=== PATIENT | female | born 1935 | race Caucasian/White ===

== ENCOUNTER 2017-06-13 17:10 | Observation (INO) | payer BC ==
--- NOTE | 2017-06-13 17:28 | PDOC ---
Rapid Medical Evaluation Chief Complaint: Edema Time Seen by Provider: 06/13/17 17:22 Medical Evaluation: Allergies Allergy/AdvReac Type Severity Reaction Status Date / Time No Known Allergies Allergy Verified 06/13/17 17:22 12 17:22 I have performed a brief in-person evaluation of this patient. The patient presents with a chief complaint of: Pain and worsening swelling to b /l LE x 2 weeks. Found to have cold, painful cyanotic b/l LE w/ no pulses in PMD 's (Dr Sharmaine Oseguera at [facility]) office today. Sent to ED to r/o acute arterial occlusion b/l. H/o HCV, HTN, PVD, R ankle ulcer, depression Pertinent physical exam findings: significant edema b/l, R LE cooler and Left side I have ordered the following: cbc/chem/t&S/coags The patient will proceed to the ED for further evaluation.
--- NOTE | 2017-06-13 17:53 | PDOC ---
History of Present Illness - General History Source: Patient Exam Limitations: No Limitations - History of Present Illness Initial Comments: 06/13/17 18:27 The patient is a 82 year old female with a significant PMH of hypertension and neuropathy who presents to the emergency department with swollen legs and bluish discoloration to her right foot starting today. The patient reports she went to see her PMD today who sent to the ER to r/o acute arterial occlusion. The patient notes she has an ulcer on the left foot and a lesion on the right ankle. As per the patient's daughter, the right foot is no longer blue. The patient denies chest pain, shortness of breath, headache and dizziness. Denies fever, chills, nausea, vomit, diarrhea and constipation. Allergies: NKA Past surgical history: None reported Social history: No reported drug, alcohol, or cigarette use. PCP: Dr. Sharmaine Oseguera <Jeri Meyers - Last Filed: 06/13/17 18:53> <Pj Holly - Last Filed: 06/14/17 00:15> <Carmen Yuen - Last Filed: 06/19/17 23:18> - General Chief Complaint: Edema Stated Complaint: PCP SENT/EVALUATION Time Seen by Provider: 06/13/17 17:22 Past History <Jeri Meyers - Last Filed: 06/13/17 18:53> <Pj Holly - Last Filed: 06/14/17 00:15> - Past Medical History Anemia: No Asthma: No Cancer: No Cardiac Disorders: No CVA: No COPD: No CHF: No DVT: No Dementia: No Diabetes: No GI Disorders: Yes (DIVERTICULITIS - RUPTURE) Disorders: No HTN: Yes Hypercholesterolemia: No Liver Disease: Yes (hep c) Seizures: No Thyroid Disease: Yes - Surgical History Abdominal Surgery: Yes Appendectomy: Yes Cardiac Surgery: No Cholecystectomy: Yes Lung Surgery: No Neurologic Surgery: No Orthopedic Surgery: No - Suicide/Smoking/Psychosocial Hx Smoking History: Former smoker Have you smoked in the past 12 months: No Information on smoking cessation initiated: No Hx Alcohol Use: No Drug/Substance Use Hx: No Substance Use Type: None <Carmen Yuen - Last Filed: 06/19/17 23:18> - Past Medical History Allergies/Adverse Reactions: Allergies Allergy/AdvReac Type Severity Reaction Status Date / Time No Known Allergies Allergy Verified 06/13/17 17:22 Home Medications: Ambulatory Orders Metolazone 20 mg PO DAILY 03/08/13 Metoprolol Succinate [Toprol XL -] 25 mg PO DAILY 03/08/13 Sertraline HCl 100 mg PO DAILY 03/08/13 Aspirin [ASA -] 81 mg PO DAILY 05/01/15 Gabapentin 300 mg PO BID 05/01/15 Multivit-Min/FA/Lycopen/Lutein [Centrum Silver Tablet] 1 tab PO DAILY 05/01/15 Lisinopril/Hydrochlorothiazide [Lisinopril-Hctz 10-12.5 mg Tab] 1 each PO DAILY 06/14/17 Oxycodone HCl/Acetaminophen [Percocet 10-325 mg Tablet] 1 each PO QID PRN Bacitracin - [Bacitracin Topical Ointment -] 1 applic TP BID #1 applic 06/15/17 Cephalexin Monohydrate [Keflex -] 500 mg PO BID #16 capsule 06/15/17 Polymyxin B Sulf/Trimethoprim [Polymyxin B-Tmp Eye Drops] 10 ml OS Q4H #1 drops 06/15/17 Review of Systems - Review of Systems Able to Perform ROS?: Yes Comments:: 06/13/17 18:28 GENERAL/CONSTITUTIONAL: No fever or chills. No weakness. HEAD, EYES, EARS, NOSE AND THROAT: No change in vision. No ear pain or discharge. No sore throat. CARDIOVASCULAR: No chest pain or shortness of breath. RESPIRATORY: No cough, wheezing, or hemoptysis. GASTROINTESTINAL: No nausea, vomiting, diarrhea or constipation. GENITOURINARY: No dysuria, frequency, or change in urination. MUSCULOSKELETAL: (+) Leg swelling. (+) Blue discoloration to the right foot. No joint or muscle pain. No neck or back pain. SKIN: No rash NEUROLOGIC: No headache, vertigo, loss of consciousness, or change in strength/ sensation. ENDOCRINE: No increased thirst. No abnormal weight change. HEMATOLOGIC/LYMPHATIC: No anemia, easy bleeding, or history of blood clots. ALLERGIC/IMMUNOLOGIC: No hives or skin allergy. <Jeri Meyers - Last Filed: 06/13/17 18:53> *Physical Exam - Vital Signs Last Vital Signs Temp Pulse Resp BP Pulse Ox 98.0 F 18 L 60 H 146/77 100 06/13/17 17:22 06/13/17 17:22 06/13/17 17:22 06/13/17 17:22 06/13/17 17:22 <Jeri Meyers - Last Filed: 06/13/17 18:53> - Vital Signs Last Vital Signs Temp Pulse Resp BP Pulse Ox 98.0 F 18 L 60 H 146/77 100 06/13/17 17:22 06/13/17 17:22 06/13/17 17:22 06/13/17 17:22 06/13/17 17:22 <Pj Holly - Last Filed: 06/14/17 00:15> - Vital Signs Last Vital Signs Temp Pulse Resp BP Pulse Ox 98.0 F 18 L 60 H 146/77 100 06/13/17 17:22 06/13/17 17:22 06/13/17 17:22 06/13/17 17:22 06/13/17 17:22 - Physical Exam Comments: GENERAL: Awake, alert, and fully oriented, in no acute distress HEAD: No signs of trauma EYES: PERRLA, EOMI, sclera anicteric, conjunctiva clear ENT: Auricles normal inspection, hearing grossly normal, nares patent, oropharynx clear without exudates. Moist mucosa NECK: Normal ROM, supple, no lymphadenopathy, JVD, or masses LUNGS: Breath sounds equal, clear to auscultation bilaterally. No wheezes, and no crackles HEART: Regular rate and rhythm, normal S1 and S2, no murmurs, rubs or gallops ABDOMEN: Soft, nontender, normoactive bowel sounds. No guarding, no rebound. No masses EXTREMITIES: Normal range of motion, 3+ pitting edema to BLE. Feet are cool to palpation, pulses difficult to palpate due to significant edema. +Tight dressing to R ankle, small laceration beneath. L heel with chronic ulcer, no active drainage. NEUROLOGICAL: Cranial nerves II through XII grossly intact. Normal speech. Motor intact. Dec sensation to feet b/l. SKIN: Warm, Dry, normal turgor, no rashes. <Carmen Yuen - Last Filed: 06/19/17 23:18> ED Treatment Course - LABORATORY CBC & Chemistry Diagram: 06/13/17 18:20 06/13/17 18:20 <Jeri Meyers - Last Filed: 06/13/17 18:53> - LABORATORY CBC & Chemistry Diagram: 06/13/17 18:20 06/13/17 18:20 - ADDITIONAL ORDERS Additional order review: Laboratory Results 06/13/17 06/13/17 06/13/17 18:20 18:20 18:20 PT with INR 12.80 H INR 1.13 Sodium 136 Potassium 4.5 Chloride 106 Carbon Dioxide 18 L Anion Gap 12 BUN 19 H Creatinine 1.3 H Creat Clearance w eGFR 39.21 Random Glucose 108 H Calcium 8.8 Total Bilirubin 0.6 AST 54 H ALT 42 Alkaline Phosphatase 89 Total Protein 9.0 H Albumin 3.8 Blood Type A POSITIVE Antibody Screen Negative 06/13/17 18:20 RBC 4.65 MCV 89.0 MCHC 32.4 RDW 14.1 MPV 8.0 Neutrophils % 72.9 Lymphocytes % 15.2 Monocytes % 8.8 Eosinophils % 2.7 Basophils % 0.4 - RADIOLOGY Radiology Studies Ordered: Category Date Time Status ABDOMEN CTA AOR & BLE RUNOFF [CT] Stat CT Scan 06/13/17 21:00 Taken CHEST X-RAY PORTABLE* [RAD] Stat Radiology 06/14/17 00:04 Ordered <Pj Holly - Last Filed: 06/14/17 00:15> - LABORATORY CBC & Chemistry Diagram: 06/15/17 06:00 06/15/17 06:00 <Carmen Yuen - Last Filed: 06/19/17 23:18> Medical Decision Making - Medical Decision Making 06/13/17 19:[address] Holly. F/u dopplers and reassess. The temporary color change in the foot may have been due to the tight dressing, but there is possibility of arterial occlusion based on patient's past history. <Cramen Yuen - Last Filed: 06/19/17 23:18> *DC/Admit/Observation/Transfer - Attestations Scribe Attestion: 06/13/17 18:34 Documentation prepared by Jeri Meyers, acting as medical customer service representative for Carmen Yuen MD. <Jeri Meyers - Last Filed: 06/13/17 18:53> - Discharge Dispostion Admit: Yes <Pj Holly - Last Filed: 06/14/17 00:15> <Carmen Yuen - Last Filed: 06/19/17 23:18> Diagnosis at time of Disposition: Swelling of both lower extremities, Arterial vascular disease - Discharge Dispostion Disposition: HOME Condition at time of disposition: Stable
[2017-06-13 18:43] LABS: BASO % 0.4 % (0-2.0); EOS % 2.7 % (0-4.5); HEMATOCRIT 41.4 % (32.4-45.2); HEMOGLOBIN 13.4 GM/dL (10.7-15.3); LYMPH % 15.2 % (8-40); MCH 28.8 pg (25.7-33.7); MCHC 32.4 g/dl (32.0-36.0); MONO % 8.8 % (3.8-10.2); NEUT % 72.9 % (42.8-82.8); PLATELET COUNT 197 K/MM3 (134-434); RBC 4.65 M/mm3 (3.60-5.2); RDW 14.1 % (11.6-15.6); WHITE BLOOD COUNT 9.2 K/mm3 (4.0-10.0)
[2017-06-13 18:57] LABS: INR 1.13 (0.82-1.09); PROTHROMBIN TIME (PATIENT) 12.8 SEC (9.98-11.88)
[2017-06-13 19:49] LABS: ALBUMIN 3.8 g/dl (3.4-5.0); ALK PHOS 89 U/L (45-117); ANION GAP 12 (8-16); BILIRUBIN,TOTAL 0.6 mg/dL (0.2-1.0); BLOOD UREA NITROGEN 19 mg/dL (7-18); CALCIUM 8.8 mg/dL (8.5-10.1); CHLORIDE 106 mmol/L (98-107); CO2 18 mmol/L (21-32); CREATININE 1.3 mg/dL (0.55-1.02); GLUCOSE,RANDOM 108 mg/dL (74-106); POTASSIUM 4.5 mmol/L (3.5-5.1); SGOT/AST 54 U/L (15-37); SGPT/ALT 42 U/L (12-78); SODIUM 136 mmol/L (136-145)
--- NOTE | 2017-06-14 00:06 | PDOC ---
*Physical Exam - Vital Signs Last Vital Signs Temp Pulse Resp BP Pulse Ox 98.0 F 18 L 60 H 146/77 100 06/13/17 17:22 06/13/17 17:22 06/13/17 17:22 06/13/17 17:22 06/13/17 17:22 ED Treatment Course - LABORATORY CBC & Chemistry Diagram: 06/13/17 18:20 06/13/17 18:20 - ADDITIONAL ORDERS Additional order review: Laboratory Results 06/13/17 06/13/17 06/13/17 18:20 18:20 18:20 PT with INR 12.80 H INR 1.13 Sodium 136 Potassium 4.5 Chloride 106 Carbon Dioxide 18 L Anion Gap 12 BUN 19 H Creatinine 1.3 H Creat Clearance w eGFR 39.21 Random Glucose 108 H Calcium 8.8 Total Bilirubin 0.6 AST 54 H ALT 42 Alkaline Phosphatase 89 Total Protein 9.0 H Albumin 3.8 Blood Type A POSITIVE Antibody Screen Negative 06/13/17 18:20 RBC 4.65 MCV 89.0 MCHC 32.4 RDW 14.1 MPV 8.0 Neutrophils % 72.9 Lymphocytes % 15.2 Monocytes % 8.8 Eosinophils % 2.7 Basophils % 0.4 - RADIOLOGY Radiology Studies Ordered: Category Date Time Status ABDOMEN CTA AOR & BLE RUNOFF [CT] Stat CT Scan 06/13/17 21:00 Taken CHEST X-RAY PORTABLE* [RAD] Stat Radiology 06/14/17 00:04 Ordered Medical Decision Making - Medical Decision Making 06/14/17 00:06 Pt CTA of Aorta and bilateral runoff show significant arterial vascular disease. MRA suggested. Pt has difficulty ambulating. Will admit to [facility] Obs *DC/Admit/Observation/Transfer Diagnosis at time of Disposition: Swelling of both lower extremities, Arterial vascular disease - Discharge Dispostion Condition at time of disposition: Stable - Referrals Referrals: Sharmaine Oseguera [Primary Care Provider] - - Patient Instructions - Post Discharge Activity
--- NOTE | 2017-06-14 00:26 | HP ---
CHIEF COMPLAINT: Lower extremity Edema PCP: Dr. Alfred HISTORY OF PRESENT ILLNESS: 82 year old female with past medical history of HTN, neuropathy, and Hep C s/p vero tx presenting with lower extremity edema and redness x 2 weeks. Patient went to see her PCP today who sent her to the ED. Patient denies seeing any discoloration of her feet. Patient also has noticed redness of her left thigh x 1 day. Patient is unsure if anything happened to that area and denies any trauma to that area. Patient denies fever, chills, chest pain, shortness of breath, leg pain, parasthesias, or cold feet. ER course was notable for: (1) Cr 1.3 (2) CTA aorta w/ runoff- Significant arterial vascular disease involving anterior and posterior tibial as well as peroneal arteries bilaterally (3) Recent Travel: denies PAST MEDICAL HISTORY: as per hpi PAST SURGICAL HISTORY: Diverticulitis, Hep C, Thyroid dz Social History: Smoking: denies Alcohol: denies Drugs: denies Family History: Allergies No Known Allergies Allergy (Verified 06/13/17 17:22) HOME MEDICATIONS: Home Medications Medication Instructions Recorded Metolazone 20 mg PO DAILY 03/08/13 Metoprolol Succinate [Toprol XL] 25 mg PO DAILY 03/08/13 Sertraline HCl 100 mg PO DAILY 03/08/13 Aspirin [ASA -] 81 mg PO DAILY 05/01/15 Gabapentin 300 mg PO BID 05/01/15 Multivit-Min/FA/Lycopen/Lutein 1 tab PO DAILY 05/01/15 [Centrum Silver Tablet] Lisinopril/Hydrochlorothiazide 1 each PO DAILY 06/14/17 [Lisinopril-Hctz 10-12.5 mg Tab] REVIEW OF SYSTEMS CONSTITUTIONAL: Absent: fever, chills, diaphoresis, generalized weakness, malaise, loss of appetite, weight change HEENT: Absent: rhinorrhea, nasal congestion, throat pain, throat swelling, difficulty swallowing, mouth swelling, ear pain, eye pain, visual changes CARDIOVASCULAR: Absent: chest pain, syncope, palpitations, irregular heart rate, lightheadedness , peripheral edema RESPIRATORY: Absent: cough, shortness of breath, dyspnea with exertion, orthopnea, wheezing, stridor, hemoptysis GASTROINTESTINAL: Absent: abdominal pain, abdominal distension, nausea, vomiting, diarrhea, constipation, melena, hematochezia GENITOURINARY: Absent: dysuria, frequency, urgency, hesitancy, hematuria, flank pain, genital pain MUSCULOSKELETAL: Absent: myalgia, arthralgia, joint swelling, back pain, neck pain SKIN: Absent: rash, itching, pallor HEMATOLOGIC/IMMUNOLOGIC: Absent: easy bleeding, easy bruising, lymphadenopathy, frequent infections ENDOCRINE: Absent: unexplained weight gain, unexplained weight loss, heat intolerance, cold intolerance NEUROLOGIC: Absent: headache, focal weakness or paresthesias, dizziness, unsteady gait, seizure, mental status changes, bladder or bowel incontinence PSYCHIATRIC: Absent: anxiety, depression, suicidal or homicidal ideation, hallucinations. PHYSICAL EXAMINATION Vital Signs - 24 hr 06/13/17 17:22 Temperature 98.0 F Pulse Rate 18 L Respiratory 60 H Rate Blood Pressure 146/77 O2 Sat by Pulse 100 Oximetry (%) GENERAL: Awake, alert, and fully oriented, in no acute distress. +Obese, HEAD: Normal with no signs of trauma. EYES: Pupils equal, round and reactive to light, extraocular movements intact, sclera anicteric, conjunctiva clear. No lid lag. EARS, NOSE, THROAT: Ears normal, nares patent, oropharynx clear without exudates. Moist mucous membranes. NECK: Normal range of motion, supple without lymphadenopathy, JVD, or masses. LUNGS: Breath sounds equal, clear to auscultation bilaterally. No wheezes, and no crackles. No accessory muscle use. HEART: Regular rate and rhythm, normal S1 and S2 without murmur, rub or gallop. ABDOMEN: Soft, nontender, not distended, normoactive bowel sounds, no guarding, no rebound, no masses. No hepatomegaly or splenomegaly. MUSCULOSKELETAL: Normal range of motion at all joints. No bony deformities or tenderness. No CVA tenderness. UPPER EXTREMITIES: 2+ pulses, warm, well-perfused. No cyanosis. No clubbing. No peripheral edema. LOWER EXTREMITIES: 2+ pulses, warm, well-perfused. 2+ peripheral edema, Left upper lateral thigh edema with erythema. Right lateral foot well healing ulcer. Left heel ulcer well healing. Erythema of b/l lower extremities from ankle to knee. NEUROLOGICAL: Cranial nerves II-XII intact. Normal speech. PSYCHIATRIC: Cooperative. Good eye contact. Appropriate mood and affect. SKIN: Warm, dry, normal turgor, no rashes or lesions noted, normal capillary refill. Laboratory Results - last 24 hr 06/13/17 06/13/17 06/13/17 18:20 18:20 18:20 WBC 9.2 RBC 4.65 Hgb 13.4 Hct 41.4 MCV 89.0 MCH 28.8 MCHC 32.4 RDW 14.1 Plt Count 197 MPV 8.0 Neutrophils % 72.9 Lymphocytes % 15.2 Monocytes % 8.8 Eosinophils % 2.7 Basophils % 0.4 PT with INR 12.80 H INR 1.13 Sodium 136 Potassium 4.5 Chloride 106 Carbon Dioxide 18 L Anion Gap 12 BUN 19 H Creatinine 1.3 H Creat Clearance w eGFR 39.21 Random Glucose 108 H Calcium 8.8 Total Bilirubin 0.6 AST 54 H ALT 42 Alkaline Phosphatase 89 Total Protein 9.0 H Albumin 3.8 Blood Type Antibody Screen 06/13/17 18:20 WBC RBC Hgb Hct MCV MCH MCHC RDW Plt Count MPV Neutrophils % Lymphocytes % Monocytes % Eosinophils % Basophils % PT with INR INR Sodium Potassium Chloride Carbon Dioxide Anion Gap BUN Creatinine Creat Clearance w eGFR Random Glucose Calcium Total Bilirubin AST ALT Alkaline Phosphatase Total Protein Albumin Blood Type A POSITIVE Antibody Screen Negative ASSESSMENT/PLAN: 82 year old female with past medical history of HTN, neuropathy, and Hep C s/p harvoni tx presenting with lower extremity edema and redness x 2 weeks placed into obs for cellulitis # Cellulitis of LE bilaterally and Left upper thigh -Start Cefazolin 1g q8h IVPB -IVF NS @ 42 cc/hr # Peripheral vascular disease -Start Aspirin 81 mg po daily -Start Lipitor 20 mg po hs -Vascular surgery consult, Dr Streeter -MRA tomorrow per vascular surgery #OMAR vs CKD -Cr 1.3 -Urine electrolytes -Monitor Cr -IVF NS @ 42 cc/hr -Avoid nephrotoxic medications #HTN -Continue Lisinopril/HCTZ 10-12.5 -Continue Metoprolol 25 mg po daily -Monitor Cr #FEN/GI -IVF NS @ 42 cc/hr -wnl -sodium controlled diet #PPx -Heparin 5000u sq q8h Visit type - Emergency Visit Emergency Visit: Yes ED Registration Date: 06/14/17 Care time: The patient presented to the Emergency Department on the above date and was hospitalized for further evaluation of their emergent condition. - New Patient This patient is new to me today: Yes Date on this admission: 06/21/17 - Critical Care Critical Care patient: No
--- NOTE | 2017-06-14 00:44 | PN ---
Teaching Attending Note Name of Resident: Bhavesh Suarez ATTENDING PHYSICIAN STATEMENT I saw and evaluated the patient. I reviewed the resident's note and discussed the case with the resident. I agree with the resident's findings and plan as documented. SUBJECTIVE: 82 F with pmhx of htn and neuropathy who presented with LE edema and discoloration of R. foot. She went to see her PMD, who sent her to ED. States once her discoloration disappeared. Also noted Left upper thigh erythema and warmth, since yesterday. States she did not injure her leg there and is not sure what happened. Denies any fevers, chills, chest pain or pressure. OBJECTIVE: Physical: VS: Vital Signs Period Temp Pulse Resp BP Sys/Jha Pulse Ox Last 24 Hr 98.0 F 18 60 146/77 100 GEN: Morbidly obese female, resting in bed, [id number] HEENT: NCAT, PERRL, throat without erythema or exudates CARD: RRR S1, S2 RESP: CTAB ABD: BSx4, NTD to palpation EXT: Bilateral Pulses intact LE +2/4, Left upper thigh erythema and edema 5X8 cm. RLE ulceration and LLE at heel. Erythema of mid calf bilateral Ext. CBCD WBC 9.2 K/mm3 (4.0-10.0) 06/13/17 18:20 RBC 4.65 M/mm3 (3.60-5.2) 06/13/17 18:20 Hgb 13.4 GM/dL (10.7-15.3) 06/13/17 18:20 Hct 41.4 % (32.4-45.2) 06/13/17 18:20 MCV 89.0 fl (80-96) 06/13/17 18:20 MCHC 32.4 g/dl (32.0-36.0) 06/13/17 18:20 RDW 14.1 % (11.6-15.6) 06/13/17 18:20 Plt Count 197 K/MM3 (134-434) 06/13/17 18:20 MPV 8.0 fl (7.5-11.1) 06/13/17 18:20 CMP Sodium 136 mmol/L (136-145) 06/13/17 18:20 Potassium 4.5 mmol/L (3.5-5.1) 06/13/17 18:20 Chloride 106 mmol/L (98-107) 06/13/17 18:20 Carbon Dioxide 18 mmol/L (21-32) L 06/13/17 18:20 Anion Gap 12 (8-16) 06/13/17 18:20 BUN 19 mg/dL (7-18) H 06/13/17 18:20 Creatinine 1.3 mg/dL (0.55-1.02) H 06/13/17 18:20 Creat Clearance w eGFR 39.21 (>60) 06/13/17 18:20 Random Glucose 108 mg/dL (74-106) H 06/13/17 18:20 Calcium 8.8 mg/dL (8.5-10.1) 06/13/17 18:20 Total Bilirubin 0.6 mg/dL (0.2-1.0) 06/13/17 18:20 AST 54 U/L (15-37) H 06/13/17 18:20 ALT 42 U/L (12-78) 06/13/17 18:20 Alkaline Phosphatase 89 U/L (45-117) 06/13/17 18:20 Total Protein 9.0 g/dl (6.4-8.2) H 06/13/17 18:20 Albumin 3.8 g/dl (3.4-5.0) 06/13/17 18:20 CTA: Significant arterial vascular disease involving anterior and posterior tibial as well as peroneal arteries bilaterallyy, MRA to be considered small hiatal hernia, cirrohosis of liver, colonic diverticulosis EkG- PENDING CXR- Pending Ambulatory Orders Metolazone 20 mg PO DAILY 03/08/13 Metoprolol Succinate [Toprol XL] 25 mg PO DAILY 03/08/13 Sertraline HCl 100 mg PO DAILY 03/08/13 Aspirin [ASA -] 81 mg PO DAILY 05/01/15 Gabapentin 300 mg PO BID 05/01/15 Multivit-Min/FA/Lycopen/Lutein [Centrum Silver Tablet] 1 tab PO DAILY 05/01/15 Lisinopril/Hydrochlorothiazide [Lisinopril-Hctz 10-12.5 mg Tab] 1 each PO DAILY 06/14/17 Oxycodone HCl/Acetaminophen [Percocet 10-325 mg Tablet] 1 each PO QID PRN 12/06/ 17 LE Duplex- Negative for DVT ASSESSMENT AND PLAN: 82 F with pmhx of htn and neuropathy who presented with LE edema and discoloration of R. foot, being admitted for cellulitis and peripheral artery disease 1.) Cellulitis LE thigh and bilateral LE - Cefazolin 1 g q8 ( no MRSA risk factors) 2.) Arterial vascular Disease of Tibial/Peroneal arteries - ASA - Lipid panel, Atorvastatin - MRA tomorrow - Vascular consult 3.) OMAR?CKD - No Baseline - U lytes - Avoid Nephrotoxins 4.) HTN - C/W home meds, with close monitoring of creatnine 5.) Dvt ppx - Heparin [address] in Obs
[2017-06-14] MEDS ORDERED: SODIUM CHLORIDE 1,000 ML IV SCH ×2 (01:30→11:44)
[2017-06-14] MEDS ORDERED: ASPIRIN 81 MG CHEWABLE TABLETS PO SCH (01:30)
[2017-06-14] MEDS ORDERED: ASPIRIN 81 MG CHEWABLE TABLETS ONE (02:56)
[2017-06-14] MEDS ORDERED: CEFAZOLIN 1 GM/D5W 1 GM/50 ML BAG ONE (02:56)
[2017-06-14] MEDS ORDERED: ATORVASTATIN CA 40 MG TABLET (FP) ONE (02:56)
[2017-06-14] MEDS: CEFAZOLIN 1 GM/D5W 1 GM/50 ML BAG IVPB SCH ×3 (03:10→17:34)
[2017-06-14] MEDS: ATORVASTATIN CA 20 MG TABLET (FP) PO SCH ×2 (03:10→21:33)
[2017-06-14 05:55] LABS: BASO % 0.5 % (0-2.0); EOS % 2.6 % (0-4.5); HEMATOCRIT 35.3 % (32.4-45.2); HEMOGLOBIN 11.9 GM/dL (10.7-15.3); LYMPH % 16.2 % (8-40); MCH 29.8 pg (25.7-33.7); MCHC 33.8 g/dl (32.0-36.0); MEAN PLT VOLUME 7.6 fl (7.5-11.1); MONO % 10.8 % (3.8-10.2); NEUT % 69.9 % (42.8-82.8); PLATELET COUNT 144 K/MM3 (134-434); RBC 4.01 M/mm3 (3.60-5.2); RDW 14.2 % (11.6-15.6); WHITE BLOOD COUNT 7.1 K/mm3 (4.0-10.0)
[2017-06-14] MEDS: HEPARIN NA (PORCINE) 5,000 UNITS/ML 1ML VIAL SQ SCH ×3 (06:11→21:33)
[2017-06-14] MEDS ORDERED: HEPARIN NA (PORCINE) 5,000 UNITS/ML 1ML VIAL ONE (06:12)
[2017-06-14 06:16] LABS: URINE APPEARANCE CLEAR; URINE BILIRUBIN NEGATIVE (NEGATIVE); URINE BLOOD NEGATIVE (NEGATIVE); URINE COLOR LTYELLOW; URINE GLUCOSE (UA) NEGATIVE (NEGATIVE); URINE KETONE NEGATIVE (NEGATIVE); URINE NITRITE POSITIVE (NEGATIVE); URINE PROTEIN NEGATIVE (NEGATIVE); URINE UROBILINOGEN NEGATIVE mg/dL (0.2-1.0)
[2017-06-14 06:22] LABS: ANION GAP 11 (8-16); BLOOD UREA NITROGEN 22 mg/dL (7-18); CALCIUM 8.6 mg/dL (8.5-10.1); CHLORIDE 105 mmol/L (98-107); CHOLESTEROL 125 mg/dL (50-200); CO2 24 mmol/L (21-32); CREATININE 1.1 mg/dL (0.55-1.02); EPI CELLS RARE /HPF (FEW); GLUCOSE,RANDOM 84 mg/dL (74-106); POTASSIUM 3.5 mmol/L (3.5-5.1); SODIUM 140 mmol/L (136-145); TRIGLYCERIDES 140 mg/dL (35-160); URINE MUCUS RARE
[2017-06-14 06:36] LABS: HDL CHOLESTEROL 33 mg/dL (40-60); LDL CHOLESTEROL (ONLY SJRH) 85 mg/dL (5-100)
--- NOTE | 2017-06-14 07:48 | CONSULT ---
- Consultation REQUESTING PROVIDER: Devyn Streeter - Vascular Surgery CONSULT REQUEST: We have been asked to surgically evaluate this patient for bilat LE coolness, pulseless PCP: Sharmaine Oseguera MD HPI: Called to eval 82 yo female with PMHx noted below. [facility]nets to [facility] ED with c/o increased swelling to her LE and a "bluish" discoloration to her right foot x1 day. States she went to see her PCP (Dr. Oseguera) who sent her to ER for further eval to r/o acute arterial occlusion. Patient is Morbidly obese. Ambulates with a walker (shuffling gait is her baseline). While in ED patient had the following studies to eval LE: 1. CTA aorta w/ runoff - significant arterial vascular disease involving anterior and posterior tibial as well as peroneal arteries bilaterally 2. Duplex - negative for DVT Currently, patient resting comfortably without complaint. Denies CP, SOB, ISAACS, palpitations, WANG, dizziness. Denies n/v/f/c, chills. Denies pain with movement of toes. PMHx: Morbidly obese, Diverticulitis, HTN, HEP C, Hypothyroid, Neuropathy, Arthritis PSHx: Appendectomy, Cholecystectomy, Ernesto's Procedure (ruptured diverticulitis) Home Meds Metolazone 20 mg PO DAILY 03/08/13 Metoprolol Succinate [Toprol XL] 25 mg PO DAILY 03/08/13 Sertraline HCl 100 mg PO DAILY 03/08/13 Aspirin [ASA -] 81 mg PO DAILY 05/01/15 Gabapentin 300 mg PO BID 05/01/15 Multivit-Min/FA/Lycopen/Lutein [Centrum Silver Tablet] 1 tab PO DAILY 05/01/15 Lisinopril/Hydrochlorothiazide [Lisinopril-Hctz 10-12.5 mg Tab] 1 each PO DAILY 06/14/17 Oxycodone HCl/Acetaminophen [Percocet 10-325 mg Tablet] 1 each PO QID PRN Allergies: NKDA ROS: CONSTITUTIONAL: Absent: generalized weakness, malaise, loss of appetite, weight change CARDIOVASCULAR: Absent: syncope, irregular heart rate, lightheadedness RESPIRATORY: Absent: stridor, hemoptysis GASTROINTESTINAL:Absent: abd pain, abdominal distension, melena, hematochezia GENITOURINARY: Absent: dysuria, frequency, urgency, hesitancy, hematuria, flank pain MUSCULOSKELETAL: Absent: myalgia, arthralgia, joint swelling, back pain, neck pain SKIN: Absent: rash, itching, pallor HEMATOLOGIC/IMMUNOLOGIC: Absent: easy bleeding, easy bruising, lymphadenopathy NEUROLOGIC: Absent: focal weakness, dizziness, unsteady gait, seizure, mental status changes, bladder or bowel incontinence PSYCHIATRIC: Absent: anxiety, depression, suicidal or homicidal ideation, hallucinations. PE: GENERAL: Awake, alert, and fully oriented, in no acute distress. NECK: NC. AT. PERRL. PULM: CTA bilat anteriorly COR: RRR ABDOMEN: Morbidly obese. Hard to assess for deep palpable mas secondary to body habitus MUSCULOSKELETAL: No CVAT UE: 2+ pulses, warm, well-perfused. No cyanosis. Cap refill <2 seconds. No peripheral edema. LE: Dopplerable pulses bilat, Left upper thigh erythema ~5 x 8 cm. RLE ulceration & LLE at heel. Venous stasis skin changes to bilat LE. bilat pitting LE edema NEURO: Normal speech, ambulating with walker to bathroom at her usual pace. Denies pain with movement of toes/feet PSYCH: Cooperative. Good eye contact. Appropriate mood and affect. Last Vital Signs Temp Pulse Resp BP Pulse Ox 98.0 F 89 18 156/85 96 06/13/17 17:22 06/14/17 07:04 06/14/17 07:04 06/14/17 07:04 06/14/17 07:04 CBC, BMP 06/14/17 05:30 06/14/17 05:30 Blood Type Blood Type A POSITIVE 06/13/17 18:20 INR, PTT INR 1.13 (0.82-1.09) 06/13/17 18:20 Problem List - Problems (1) Swelling of both lower extremities Assessment/Plan: Bilat LE cellulitis & left thigh --> Cefazolin 1 g q8, elevate legs while in seated position or when laying supine Severe PAD --> Tibial/Peroneal arteries: ASA, Atorvastatin Cont medical management Vascular Surgery to cont following Code(s): M79.89 - OTHER SPECIFIED SOFT TISSUE DISORDERS (2) Arterial vascular disease Code(s): I70.90 - UNSPECIFIED ATHEROSCLEROSIS Visit type - Case Type Case Type: ED Admission - Emergency Emergency Visit: Yes ED Registration Date: 06/14/17 Care time: The patient presented to the Emergency Department on the above date and was hospitalized for further evaluation of their emergent condition. - New patient This patient is new to me today: Yes Date on this admission: 06/14/17
[2017-06-14 09:21] VITALS: BMI 43.7
[2017-06-14] MEDS: ASPIRIN 81 MG CHEWABLE TABLETS PO SCH (09:42)
[2017-06-14] MEDS: METOPROLOL SUCCINATE 25 MG TAB.SR.24H (FP) PO SCH (09:44)
[2017-06-14] MEDS ORDERED: HYDROCHLOROTHIAZIDE 12.5 MG CAPSULE (FP) PO SCH (10:00)
[2017-06-14] MEDS ORDERED: PATIENT'S OWN MEDICATION (NON-FORMULARY) (Lisinopril/Hydrochlorothiazide [Lisinopril-Hctz PO SCH (10:00)
[2017-06-14] MEDS ORDERED: LISINOPRIL 10 MG TABLET (FP) PO SCH (10:00)
[2017-06-14] MEDS: GABAPENTIN 300 MG CAPSULE (FP) PO SCH ×2 (10:07→21:33)
--- NOTE | 2017-06-14 10:22 | EKG ---
Test Reason : Blood Pressure : / mmHG Vent. Rate : 067 BPM Atrial Rate : 067 BPM P-R Int : 170 ms QRS Dur : 082 ms QT Int : 442 ms P-R-T Axes : 028 -16 030 degrees QTc Int : 467 ms POOR DATA QUALITY, INTERPRETATION MAY BE ADVERSELY AFFECTED NORMAL SINUS RHYTHM CANNOT RULE OUT ANTERIOR INFARCT , AGE UNDETERMINED ABNORMAL ECG NO PREVIOUS ECGS AVAILABLE Confirmed by ALEX MCKINLEY, RONY ([id number]) on 06/14/2017 10:21:55 AM Referred By: Confirmed By:RONY JOHNSON MD
[2017-06-14 12:32] LABS: URINE LEUK ESTERASE 1+ (NEGATIVE)
--- NOTE | 2017-06-14 15:09 | PN ---
Physical Exam: SUBJECTIVE: Patient seen and examined in ED. She has no acute issues, denies fever, chills, lower leg pain. Denies trauma, bug bite, scratching to affected area. OBJECTIVE: Vital Signs Period Temp Pulse Resp BP Sys/Jha Pulse Ox Last 24 Hr 97.9 F-98.0 F 18-89 18-60 128-156/75-85 96-100 PE Neuro: alert, awake, cn 2-12intact HEENTL L eye chalazion visible head to lower lid Pulm: CTAB CV: s1 s2 rrr no mrg Abd: obese abd, s nt nd +bs Ext: b/l erythema lower ext ankle to calf, +2 edema, L heel ulcer, R foot wound dressing changed CDI, LUE erythema/cellulitis CBCD WBC 7.1 K/mm3 (4.0-10.0) 06/14/17 05:30 RBC 4.01 M/mm3 (3.60-5.2) 06/14/17 05:30 Hgb 11.9 GM/dL (10.7-15.3) D 06/14/17 05:30 Hct 35.3 % (32.4-45.2) 06/14/17 05:30 MCV 88.0 fl (80-96) 06/14/17 05:30 MCHC 33.8 g/dl (32.0-36.0) 06/14/17 05:30 RDW 14.2 % (11.6-15.6) 06/14/17 05:30 Plt Count 144 K/MM3 (134-434) D 06/14/17 05:30 MPV 7.6 fl (7.5-11.1) 06/14/17 05:30 CMP Sodium 140 mmol/L (136-145) 06/14/17 05:30 Potassium 3.5 mmol/L (3.5-5.1) D 06/14/17 05:30 Chloride 105 mmol/L (98-107) 06/14/17 05:30 Carbon Dioxide 24 mmol/L (21-32) D 06/14/17 05:30 Anion Gap 11 (8-16) 06/14/17 05:30 BUN 22 mg/dL (7-18) H 06/14/17 05:30 Creatinine 1.1 mg/dL (0.55-1.02) H 06/14/17 05:30 Creat Clearance w eGFR 39.21 (>60) 06/13/17 18:20 Calcium 8.6 mg/dL (8.5-10.1) 06/14/17 05:30 Total Bilirubin 0.6 mg/dL (0.2-1.0) 06/13/17 18:20 AST 54 U/L (15-37) H 06/13/17 18:20 ALT 42 U/L (12-78) 06/13/17 18:20 Alkaline Phosphatase 89 U/L (45-117) 06/13/17 18:20 Total Protein 9.0 g/dl (6.4-8.2) H 06/13/17 18:20 Albumin 3.8 g/dl (3.4-5.0) 06/13/17 18:20 06/13/17 18:20 PT with INR 12.80 H INR 1.13 Active Medications Generic Name Dose Route Start Last Admin Trade Name Kiq PRN Reason Stop Dose Admin Aspirin 81 mg 06/14/17 10:00 06/14/17 09:42 Asa - PO 81 mg DAILY DANIKA Administration Atorvastatin Calcium 20 mg 06/14/17 01:30 06/14/17 03:10 Lipitor - PO 20 mg HS DANIKA Administration Gabapentin 300 mg 06/14/17 10:00 06/14/17 10:07 Neurontin - PO 300 mg BID DANIKA Administration Heparin Sodium (Porcine) 5,000 unit 06/14/17 06:00 06/14/17 13:40 Heparin - SQ 5,000 unit TID DANIKA Administration Cefazolin Sodium 1 gm in 50 mls @ 100 mls/hr 06/14/17 02:00 06/14/17 09:41 Ancef 1 Gm Premixed Ivpb - IVPB 100 mls/hr Q8H-IV DANIKA Administration Sodium Chloride 1,000 mls @ 60 mls/hr 06/14/17 11:44 06/14/17 12:10 Normal Saline - IV 06/14/17 18:09 60 mls/hr ASDIR DANIKA Administration Metoprolol Succinate 25 mg 06/14/17 10:00 06/14/17 09:44 Toprol Xl - PO 25 mg DAILY DANIKA Administration Assessment: 82 year old female with pmhx HTN, PAD, neuropathy presented with LE edema and discoloration of R. foot, being admitted for cellulitis and peripheral artery disease Plan: 1. Cellulitis LE thigh and bilateral LE - Cefazolin 1 g q8 (no MRSA risk factors, negative for DM II) - Gabapentin 300 BID 2. Arterial vascular Disease of Tibial/Peroneal arteries - ASA 81mg - Lipitor 20mg HS - MRA eval per vascular 3. OMAR - UA negative for protienuria - Cr improved - Due to contrast dye 1L NS - Stop HCTZ/Lisinopril tomorrow, monitor renal fxn - Trend cr - Avoid nephrotoxic agents 4. HTN - Continue toprol xl 25mg daily, uptitrate as needed - Hold HCTZ/KENNEDY w/ fluids 5. PPX - Heparin 5000units q8h - PT, pt walks w walker Visit type - Emergency Visit Emergency Visit: Yes ED Registration Date: 06/14/17 Care time: The patient presented to the Emergency Department on the above date and was hospitalized for further evaluation of their emergent condition. - New Patient This patient is new to me today: Yes Date on this admission: 06/14/17 - Critical Care Critical Care patient: No
[2017-06-14] MEDS ORDERED: oxyCODONE HCL 5 MG TABLET PO PRN ×2 (15:31→15:32)
[2017-06-14] MEDS ORDERED: ACETAMINOPHEN 325 MG TABLET (FP) PO PRN (15:32)
--- NOTE | 2017-06-14 16:15 | CON.ID ---
Consult Reason for Consultation:: cellulitis - History of Present Illness History of Present Illness: Pt is an 82 y.o. female with history of morbid obesity, HTN, PVD, arthritis, Rt lateral malleolar and Lt heels ulcers, morbid obesity,depression and Hepatitis C (treated first with INF/ribavirin, then Harvoni by her GI doctor), liver cirrhosis presenting with complaints of erythema and mild tenderness in anterior /lateral thigh that she noticed 3 days ago. States that she has some tenderness at the site. Pt also has erythema of b/l lower legs/calf but does not know when this started. Her daughter as per patient noticed some bluish discoloration of her Rt foot recently. Pt is alert, denies fever, chills, shortness of breath, chest pain, abd pain, dysuria. She normally ambulates with a walker. Was sent in for evaluation by her PMD to rule out arterial vascular disease. - History Source History Provided By: Patient Limitations to Obtaining History: No Limitations - Past Medical History COMPLIANCE ATTORNEY: Yes: Peripheral Neuropathy Cardio/Vascular: Yes: HTN Pulmonary: No: Asthma, Bronchitis, Cancer, COPD, O2 Dependent, Pneumonia, Previously Intubated, Pulmonary Embolus, Pulmonary Fibrosis, Sleep Apnea, Other Gastrointestinal: Yes: Diverticulitis Hepatobiliary: Yes: Cirrhosis, Hepatitis C Renal/: No: Renal Failure, Renal Inusuff, BPH, Cancer, Hematuria, Hemodialysis , Neurogenic Bladder, Renal Calculi, UTI, Other Reproductive: No: Ectopic , Endometriosis, Fibroids, PID, Polycystic Ovary Syndrome, Postmenopausal, Other Heme/Onc: No: Anemia, B12 Deficiency, Bleeding Disorder, Cancer, Current Chemotherapy, Current Radiation Therapy, Hemochromatosis, Hypercoaguable State, Myeloproliferative Synd, Sickle Cell Disease, Sickle Cell Trait, Thrombocytopenia, Other Infectious Disease: No: AIDS, C-Diff, Herpes Zoster, HIV, MRSA, STD's, Tuberculosis, VREF, Other Psych: Yes: Depression Musculoskeletal: No: Bursitis, Chronic low back pain, Hemiparesis, Hemiplegia, Osteoarthritis, Paraplegia, Other Rheumatology: No: Fibromyalgia, Gout, Lupus, Rheumatoid Arthritis, Sarcoidosis, Vasculitis, Other Endocrine: No: [place]'s Disease, [place]'s Disease, Diabetes Insipidus, Diabetes Mellitus, Hyperparathyroidism, Hyperthyroidism, Hypothyroidism, Osteopenia, SIADH, Other - Past Surgical History Past Surgical History: Yes: , Hysterectomy - Alcohol/Substance Use Hx Alcohol Use: No - Smoking History Smoking history: Former smoker Have you smoked in the past 12 months: No - Social History Usual Living Arrangement: Other (with daughter) History of Recent Travel: No Home Medications - Allergies Allergies/Adverse Reactions: Allergies Allergy/AdvReac Type Severity Reaction Status Date / Time No Known Allergies Allergy Verified 06/13/17 17:22 - Home Medications Home Medications: Ambulatory Orders Metolazone 20 mg PO DAILY 03/08/13 Metoprolol Succinate [Toprol XL] 25 mg PO DAILY 03/08/13 Sertraline HCl 100 mg PO DAILY 03/08/13 Aspirin [ASA -] 81 mg PO DAILY 05/01/15 Gabapentin 300 mg PO BID 05/01/15 Multivit-Min/FA/Lycopen/Lutein [Centrum Silver Tablet] 1 tab PO DAILY 05/01/15 Lisinopril/Hydrochlorothiazide [Lisinopril-Hctz 10-12.5 mg Tab] 1 each PO DAILY 06/14/17 Oxycodone HCl/Acetaminophen [Percocet 10-325 mg Tablet] 1 each PO QID PRN Family Disease History - Family Disease History Family Disease History: Heart Disease: Father, Mother Review of Systems - Review of Systems Constitutional: reports: No Symptoms Eyes: reports: No Symptoms HENT: reports: No Symptoms Neck: reports: No Symptoms Cardiovascular: reports: No Symptoms Respiratory: reports: No Symptoms Gastrointestinal: reports: No Symptoms Genitourinary: reports: No Symptoms Musculoskeletal: reports: No Symptoms Integumentary: reports: Other (Lt thigh erythema with mild tenderness) Neurological: reports: No Symptoms Endocrine: reports: No Symptoms Hematology/Lymphatic: reports: No Symptoms Psychiatric: reports: No Symptoms Physical Exam Vital Signs: Vital Signs Temperature 97.9 F 06/14/17 08:54 Pulse Rate 62 06/14/17 08:54 Respiratory Rate 20 06/14/17 09:23 Blood Pressure 128/75 06/14/17 08:54 O2 Sat by Pulse Oximetry (%) 96 06/14/17 09:23 Constitutional: Yes: No Distress, Calm HENT: Yes: Atraumatic Neck: Yes: Supple Cardiovascular: Yes: Regular Rate and Rhythm Respiratory: Yes: CTA Bilaterally Gastrointestinal: Yes: Normal Bowel Sounds, Soft Renal/: Yes: WNL Musculoskeletal: Yes: WNL Extremities: Yes: Other (Rt lateral malleolar ulcer dry, Lt heel ulcer without drainage, b/l foot/calf erythema without tenderness Lt ha-lateral thigh erythema/mild induration, mildly tender) Edema: Yes Edema: LLE: 2+, RLE: 2+ Neurological: Yes: Alert, Oriented Psychiatric: Yes: Alert Labs: CBC, BMP 06/14/17 05:30 06/14/17 05:30 Problem List - Problems (1) Cellulitis Code(s): L03.90 - CELLULITIS, UNSPECIFIED (2) Arterial vascular disease Code(s): I70.90 - UNSPECIFIED ATHEROSCLEROSIS (3) Swelling of both lower extremities Code(s): M79.89 - OTHER SPECIFIED SOFT TISSUE DISORDERS Assessment/Plan Pt with HTN, morbid obesity, Hep C, hypothyroidism, depression, Rt lat ankle ulcer and Lt heel ulcer presenting with b/l LE erythema/edema with underlying chronic changes and Lt anteriolateral thigh erythema/tenderness Cellulitis Arterial vascular disease - continue Cefazolin IV - vascular surgery following - cont wound care to LE ulcers - Hepatitis C viral load will f/u Thank you
[2017-06-14] MEDS: SERTRALINE HCL 50 MG TABLET (FP) PO SCH (16:38)
[2017-06-14] MEDS ORDERED: PT OWN MED DRAWER 7, Y5N ONE ×2 (17:27→18:15)
[2017-06-14] MEDS ORDERED: DOXYCYCLINE HYCLATE 100 MG CAPSULE PO SCH (18:00)
[2017-06-14] MEDS: CEFAZOLIN 1 GM PUSH 1 GM/10 ML DISP.SYRIN IVPUSH SCH (19:19)
[2017-06-15] MEDS: CEFAZOLIN 1 GM PUSH 1 GM/10 ML DISP.SYRIN IVPUSH SCH ×3 (01:32→18:11)
[2017-06-15] MEDS: HEPARIN NA (PORCINE) 5,000 UNITS/ML 1ML VIAL SQ SCH ×2 (06:48→14:21)
[2017-06-15 07:55] LABS: BASO % 0.5 % (0-2.0); EOS % 3.2 % (0-4.5); HEMATOCRIT 35.8 % (32.4-45.2); HEMOGLOBIN 11.7 GM/dL (10.7-15.3); LYMPH % 19.7 % (8-40); MCHC 32.7 g/dl (32.0-36.0); MEAN CELL VOLUME 88.5 fl (80-96); MEAN PLT VOLUME 7.5 fl (7.5-11.1); MONO % 10.1 % (3.8-10.2); NEUT % 66.5 % (42.8-82.8); PLATELET COUNT 126 K/MM3 (134-434); RBC 4.05 M/mm3 (3.60-5.2); RDW 13.9 % (11.6-15.6); WHITE BLOOD COUNT 5.4 K/mm3 (4.0-10.0)
[2017-06-15 08:18] LABS: CHLORIDE 106 mmol/L (98-107); SODIUM 143 mmol/L (136-145)
[2017-06-15 08:54] LABS: ANION GAP 9 (8-16); BLOOD UREA NITROGEN 16 mg/dL (7-18); CALCIUM 8.6 mg/dL (8.5-10.1); CO2 28 mmol/L (21-32); CREATININE 0.9 mg/dL (0.55-1.02); GLUCOSE,RANDOM 94 mg/dL (74-106)
[2017-06-15] MEDS: ASPIRIN 81 MG CHEWABLE TABLETS PO SCH (11:07)
[2017-06-15] MEDS: GABAPENTIN 300 MG CAPSULE (FP) PO SCH (11:07)
[2017-06-15] MEDS: SERTRALINE HCL 50 MG TABLET (FP) PO SCH (11:08)
[2017-06-15] MEDS: METOPROLOL SUCCINATE 25 MG TAB.SR.24H (FP) PO SCH (11:08)
--- NOTE | 2017-06-15 12:21 | PN ---
Progress Note, Physician History of Present Illness: Pt feels well. Has no pain currently. No specific complaints. Remains afebrile. - Current Medication List Current Medications: Active Medications Acetaminophen (Tylenol -) 325 mg PO Q6H PRN PRN Reason: FEVER OR PAIN Aspirin (Asa -) 81 mg PO DAILY [facility] Last Admin: 06/15/17 11:07 Dose: 81 mg Atorvastatin Calcium (Lipitor -) 20 mg PO HS [facility] Last Admin: 06/14/17 21:33 Dose: 20 mg Gabapentin (Neurontin -) 300 mg PO BID [facility] Last Admin: 06/15/17 11:07 Dose: 300 mg Heparin Sodium (Porcine) (Heparin -) 5,000 unit SQ TID [facility] Last Admin: 06/15/17 06:48 Dose: 5,000 unit Cefazolin Sodium (Ancef -) 1 gm in 10 mls @ 120 mls/hr IVPUSH Q8H-IV [facility] Last Admin: 06/15/17 11:09 Dose: 120 mls/hr Metoprolol Succinate (Toprol Xl -) 25 mg PO DAILY [facility] Last Admin: 06/15/17 11:08 Dose: 25 mg Oxycodone HCl (Roxicodone -) 10 mg PO Q6H PRN PRN Reason: PAIN Last Admin: 06/14/17 21:34 Dose: 10 mg Sertraline HCl (Zoloft -) 100 mg PO DAILY [facility] Last Admin: 06/15/17 11:08 Dose: 100 mg - Objective Vital Signs: Vital Signs Temperature 98.3 F 06/15/17 05:58 Pulse Rate 59 L 06/15/17 05:58 Respiratory Rate 20 06/15/17 05:58 Blood Pressure 146/60 06/15/17 05:58 O2 Sat by Pulse Oximetry (%) 98 06/15/17 00:23 Constitutional: Yes: No Distress, Calm Neck: Yes: Supple Cardiovascular: Yes: Regular Rate and Rhythm Respiratory: Yes: CTA Bilaterally Gastrointestinal: Yes: Normal Bowel Sounds, Soft, Abdomen, Obese Genitourinary: Yes: WNL Extremities: Yes: Other (b/l LE erythema decreased, no tenderness Lt thigh erythema resolving, no warmth or tenderness) Neurological: Yes: Alert, Oriented Psychiatric: Yes: Alert Labs: CBC, BMP 06/15/17 06:00 06/15/17 06:00 INR, PTT INR 1.13 (0.82-1.09) 06/13/17 18:20 Problem List - Problems (1) Cellulitis Code(s): L03.90 - CELLULITIS, UNSPECIFIED (2) Arterial vascular disease Code(s): I70.90 - UNSPECIFIED ATHEROSCLEROSIS (3) Swelling of both lower extremities Code(s): M79.89 - OTHER SPECIFIED SOFT TISSUE DISORDERS Assessment/Plan Pt with HTN, morbid obesity, Hep C, hypothyroidism, depression, Rt lat ankle ulcer and Lt heel ulcer presenting with b/l LE erythema/edema with underlying chronic changes and Lt anteriolateral thigh erythema/tenderness Cellulitis - improving on ancef IV Arterial vascular disease - on discharge may switch to keflex 500 mg po BID x one wk (to complete total 10 day course) - vascular surgery following - cont wound care to LE ulcers - Hepatitis C treated , november f/u with her own GI doctor above d/w with medicine
--- NOTE | 2017-06-15 14:14 | DS ---
Physical Exam: SUBJECTIVE: Patient seen and examined. No acute complaints. Denies fever, chills. OBJECTIVE: Vital Signs Period Temp Pulse Resp BP Sys/Jha Pulse Ox Last 24 Hr 98.1 F-98.9 F 59-83 18-20 135-150/60-73 96-98 PE Neuro: alert, awake, cn 2-12intact HEENT: L eye chalazion Pulm: CTAB CV: s1 s2 rrr no mrg Abd: obese abd, s nt nd +bs Ext: b/l erythema lower ext ankle to calf, +2 edema, L foot ulcer, R foot wound dressing changed CDI, LUE erythema- improved + DP pulses Laboratory Results - last 24 hr 06/15/17 06/15/17 06:00 06:00 WBC 5.4 RBC 4.05 Hgb 11.7 Hct 35.8 MCV 88.5 MCH 29.0 MCHC 32.7 RDW 13.9 Plt Count 126 L MPV 7.5 Neutrophils % 66.5 Lymphocytes % 19.7 D Monocytes % 10.1 Eosinophils % 3.2 Basophils % 0.5 Sodium 143 Potassium 4.0 Chloride 106 Carbon Dioxide 28 Anion Gap 9 BUN 16 D Creatinine 0.9 Random Glucose 94 Calcium 8.6 HOSPITAL COURSE: Date of Admission:06/14/17 Date of Discharge: 06/15/17 Minutes to complete discharge: 37 Discharge Summary Reason For Visit: SWELLING OF BOTH LOWER EXTEMITIES Current Active Problems Arterial vascular disease (Acute) Cellulitis (Acute) Swelling of both lower extremities (Acute) Hospital Course: Initial Hospital Course: Briefly, this 82 year old female with past medical history of HTN, neuropathy, and Hep C s/p harvoni tx presented with lower extremity edema and redness x 2 weeks. Patient went to see her PCP who sent her to the ED. Patient denied seeing any discoloration of her feet. Patient also has noticed redness of her left thigh x 1 day. Denied any trauma to that area. Subsequent Hospital Course/Progress Note/DC summary: Assessment: 82 year old female with pmhx HTN, PAD, neuropathy presented with LE edema and discoloration of R. foot, being admitted for cellulitis and peripheral artery disease Plan: 1. Cellulitis LE thigh and bilateral LE - 2 days Cefazolin 1 g q8 (no MRSA risk factors, negative for DM II) - Gabapentin 300 BID - Home w keflex 500mg BID x8 more days 2. Arterial vascular Disease of Tibial/Peroneal arteries - ASA 81mg - Lipitor 20mg HS - Bacitracin to feet wounds daily 3. OMAR - Resolved - Resume home meds 4. HTN - Continue toprol xl 25mg daily, HCTZ, lisinopril 5. L eye chalazion - Warm compress, polymyxin b gtts 6. Hep C - On harvoni Dispo: - Home with VNS and above meds - Wound Care information given for follow up Condition: Stable - Instructions Diet, Activity, Other Instructions: Please return to the ED for any new, persistent, or worsening symptoms. Follow up with your PCP in 1 week Resume home medications as directed Take antibiotics as directed and until completed Continue daily wound care to feet Continue drops and warm compresses to L eye as directed, of worsens return to ED Referrals: Sharmaine Oseguera [Primary Care Provider] - Devyn Streeter MD [Staff Physician] - Disposition: VNS/HOME HEALTH CARE - Home Medications Comprehensive Discharge Medication List: Ambulatory Orders Metolazone 20 mg PO DAILY 03/08/13 Metoprolol Succinate [Toprol XL -] 25 mg PO DAILY 03/08/13 Sertraline HCl 100 mg PO DAILY 03/08/13 Aspirin [ASA -] 81 mg PO DAILY 05/01/15 Gabapentin 300 mg PO BID 05/01/15 Multivit-Min/FA/Lycopen/Lutein [Centrum Silver Tablet] 1 tab PO DAILY 05/01/15 Lisinopril/Hydrochlorothiazide [Lisinopril-Hctz 10-12.5 mg Tab] 1 each PO DAILY 06/14/17 Oxycodone HCl/Acetaminophen [Percocet 10-325 mg Tablet] 1 each PO QID PRN Cephalexin Monohydrate [Keflex -] 500 mg PO BID #16 capsule 06/15/17 This patient is new to me today: No Emergency Visit: Yes ED Registration Date: 06/14/17 Care time: The patient presented to the Emergency Department on the above date and was hospitalized for further evaluation of their emergent condition. Critical Care patient: No - Discharge Referral Referred to [facility] Med P.C.: No
[2017-06-15 15:01] VITALS: PULSE 59
[2017-06-15] MEDS ORDERED: PT OWN MED DRAWER 7, Y5N ONE ×2 (15:45→16:48)
--- NOTE | 2017-06-15 15:46 | PN ---
Progress Note (short form) - Note Progress Note: Vascular Surgery Pt seen and examined. Well known to wound care clinic. Pt with right lateral mallelous wound. Once healed now open. Bacitracin to area daily. Cellulitis has resolved. pt will follow up in wound care clinic Please make appt prior to DC Devyn Streeter DO
[2017-06-15 17:01] VITALS: BP 133/78; TEMP 99.1
== END 2017-06-15 19:00 | disposition home health service (06) ==
LOC: JER 17:10 → JERBED 06-14 00:15 → J8W 06-14 14:20
PROVIDERS: ADMIT Internal Medicine; ATTEND Nurse Practitioner Acute Care
PROC: 3E013GC Introduction of Other Therapeutic Substance into Subcutaneous Tissue, Percutaneous Approach (ICD-10-PCS; principal; 2017-06-14)
DX: L03.116 Cellulitis of left lower limb (principal); L03.115 Cellulitis of right lower limb; N17.9 Acute kidney failure, unspecified; I73.9 Peripheral vascular disease, unspecified; I10 Essential (primary) hypertension; B18.2 Chronic viral hepatitis C; H00.16 Chalazion left eye, unspecified eyelid; L97.319 Non-pressure chronic ulcer of right ankle with unspecified severity; L97.429 Non-pressure chronic ulcer of left heel and midfoot with unspecified severity; E66.01 Morbid (severe) obesity due to excess calories; Z68.43 Body mass index [BMI] 50.0-59.9, adult; Z68.41 Body mass index [BMI] 40.0-44.9, adult
CPT/HCPCS: 36415; 71010-TC; 75635-TC; 80048; 80053; 80061; 81003; 81015; 82436; 83036; 83721; 84133; 84300; 85025; 85610; 86850; 86900; 86901; 93005; 93010; 93925-TC; 93970-TC; 97116-GP; 97161-GP; 99284-25; G0378; J1644

== ENCOUNTER 2021-10-25 10:55 | Inpatient (IN) | payer BC, OTHER ==
[2021-10-25] MEDS ORDERED: metoPROLOL SUCCINATE 25 MG TAB.SR.24H (FP) PO ONE ×2 (11:31→14:26)
[2021-10-25] MEDS ORDERED: metoPROLOL SUCCINATE 25 MG TAB.SR.24H (FP) ONE ×2 (12:09→15:42)
[2021-10-25 13:01] LABS: HEMATOCRIT 29.3 % (32.4-45.2); HEMOGLOBIN 9.6 GM/dL (10.7-15.3); MCH 30.5 pg (25.7-33.7); MCHC 32.9 g/dl (32.0-36.0); MEAN CELL VOLUME 92.5 fl (80-96); MEAN PLT VOLUME 7.8 fl (7.5-11.1); PLATELET COUNT 231 10^3/uL (134-434); RBC 3.17 M/mm3 (3.60-5.2); RDW 14.3 % (11.6-15.6)
[2021-10-25 13:06] LABS: VENOUS BASE EXCESS -8.3 mmol/L (-2-2); VENOUS O2 SATURATION 79.2 % (70-80); VENOUS PCO2 36.2 mmHg (38-52); VENOUS PH 7.299 (7.310-7.410)
[2021-10-25 13:10] LABS: INR 3.98 (0.83-1.09); PROTHROMBIN TIME (PATIENT) 46.4 SEC (9.7-13.0)
[2021-10-25 13:12] LABS: ACTIVATED PTT 43.4 SECONDS (25.2-36.5)
[2021-10-25 13:22] LABS: CALCIUM 9.2 mg/dL (8.5-10.1)
[2021-10-25 13:23] LABS: ALBUMIN 3.3 g/dl (3.4-5.0); BLOOD UREA NITROGEN 46.3 mg/dL (7-18)
[2021-10-25 13:26] LABS: CREATININE 1.3 mg/dL (0.55-1.3)
[2021-10-25 13:28] LABS: BILIRUBIN,TOTAL 0.7 mg/dL (0.2-1); LACTIC ACID 5.1 mmol/L (0.4-2.0); TOT PROT 7.1 g/dl (6.4-8.2)
[2021-10-25 13:31] LABS: N-TERMINAL BNP 1248.1 pg/ml (5-450)
[2021-10-25] MEDS ORDERED: SODIUM CHLORIDE 3,674 ML IV ONE (13:35)
[2021-10-25] MEDS ORDERED: SODIUM CHLORIDE 0.9% 500 ML INFUS.BAG IV ONE (13:42)
[2021-10-25] MEDS ORDERED: ACETAMINOPHEN 1000 MG/100 ML BAG IVPB ONE (13:47)
[2021-10-25] MEDS ORDERED: VANCOMYCIN 1 GM in D5W (PRE-DOCKED) 1,000 MG/250 ML IVPB ONE (13:47)
[2021-10-25] MEDS ORDERED: PIPERACILLIN/TAZOB 3.375 GM 3.375 GM in DEXTROSE 5%-WATER - 50 ML IVPB ONE (13:48)
[2021-10-25] MEDS ORDERED: PIPERACILLIN/TAZOB 3.375 GM 3.375 GM/50 ML BAG IVPB ONE (14:16)
[2021-10-25] MEDS ORDERED: VANCOMYCIN 1 GRAM (PRE-DOCKED) 1,000 MG/250 ML BAG IVPB ONE (14:16)
[2021-10-25] MEDS ORDERED: ACETAMINOPHEN INJECTION 100 ML IVPB ONE (14:16)
[2021-10-25 15:07] LABS: ALLENS TEST POSITIVE; ARTERIAL BLD GAS O2 SATURATION 99.4 % (95-98); ARTERIAL BLOOD GAS BASE EXCESS -3.2 mmol/L (-2-2); ARTERIAL BLOOD GAS PO2 200.6 mmHg (80-100); ARTERIAL BLOOD GAS pH 7.422 (7.350-7.450)
[2021-10-25 15:24] LABS: LIPASE 92 U/L (73-393)
[2021-10-25 15:27] LABS: BILIRUBIN,DIRECT 0.2 mg/dL (0.0-0.2)
[2021-10-25 15:30] LABS: LDH 564 U/L (84-246)
[2021-10-25 16:16] LABS: EPI CELLS 3 /uL (0-25.1); HYALINE CASTS 6 /uL (0-3.1); URINE APPEARANCE CLOUDY; URINE BACTERIA >9,000 /uL (0-1359); URINE BILIRUBIN NEGATIVE (NEGATIVE); URINE COLOR YELLOW; URINE GLUCOSE (UA) NEGATIVE (NEGATIVE); URINE KETONE NEGATIVE (NEGATIVE); URINE LEUK ESTERASE 2+ (NEGATIVE); URINE NITRITE NEGATIVE (NEGATIVE); URINE PROTEIN TRACE (NEGATIVE); URINE RBC 7 /uL (0-23.9); URINE UROBILINOGEN 0.2 mg/dL (0.2-1.0); URINE WBC 231 /uL (0-25.8)
[2021-10-25 21:14] LABS: LACTIC ACID 2.9 mmol/L (0.4-2.0)
[2021-10-25 22:04] LABS: ARTERIAL BLD GAS O2 SATURATION 95.7 % (95-98); ARTERIAL BLOOD GAS BASE EXCESS -5.8 mmol/L (-2-2); ARTERIAL BLOOD GAS PO2 71.7 mmHg (80-100); ARTERIAL BLOOD GAS pH 7.471 (7.350-7.450)
[2021-10-25 22:08] LABS: ALLENS TEST POSITIVE
[2021-10-25] MEDS ORDERED: PANTOPRAZOLE SODIUM 40 MG VIAL IVPUSH ONE (22:16)
[2021-10-26] MEDS ORDERED: PHYTONADIONE 10 MG/1 ML AMP IVPB ONE (00:48)
[2021-10-26] MEDS ORDERED: PHYTONADIONE 10 MG/1 ML AMP ONE (01:41)
[2021-10-26] MEDS ORDERED: PANTOPRAZOLE SODIUM 40 MG VIAL ONE (01:45)
[2021-10-26 01:51] LABS: HEMATOCRIT 24.7 % (32.4-45.2); HEMOGLOBIN 8.3 GM/dL (10.7-15.3); MCH 30.9 pg (25.7-33.7); MCHC 33.7 g/dl (32.0-36.0); MEAN CELL VOLUME 91.6 fl (80-96); MEAN PLT VOLUME 7.7 fl (7.5-11.1); PLATELET COUNT 207 10^3/uL (134-434); RBC 2.69 M/mm3 (3.60-5.2); RDW 14.1 % (11.6-15.6); WHITE BLOOD COUNT 13.9 K/mm3 (4.0-10.0)
[2021-10-26] MEDS ORDERED: LACTATED RINGERS SOLUTION 1000 ML INFUS.BAG IV ONE (02:11)
[2021-10-26] MEDS ORDERED: DEXMEDETOMIDINE IN 0.9 % NACL 400 MCG/100 ML VIAL IVPB SCH (02:15)
[2021-10-26 05:08] LABS: HEMATOCRIT 25.6 % (32.4-45.2); HEMOGLOBIN 8.2 GM/dL (10.7-15.3); MCH 30.4 pg (25.7-33.7); MCHC 32.2 g/dl (32.0-36.0); MEAN CELL VOLUME 94.5 fl (80-96); PLATELET COUNT 220 10^3/uL (134-434); RDW 13.9 % (11.6-15.6); WHITE BLOOD COUNT 16.9 K/mm3 (4.0-10.0)
[2021-10-26] MEDS ORDERED: PANTOPRAZOLE SODIUM 160 MG in SODIUM CHLORIDE 290 ML IVPB SCH (09:30)
[2021-10-26] MEDS ORDERED: OCTREOTIDE ACETATE 200 MCG, OCTREOTIDE ACETATE 1,000 MCG in DEXTROSE 5%-WATER - 496 ML IVPB SCH (09:30)
[2021-10-26] MEDS ORDERED: PANTOPRAZOLE SODIUM 40 MG VIAL IVPUSH SCH (10:00)
[2021-10-26] MEDS ORDERED: CEFTRIAXONE 1 GM/50 ML BAG ONE (10:38)
[2021-10-26] MEDS: CEFTRIAXONE 1 GM in DEXTROSE 5%-WATER - 50 ML IVPB SCH ×2 (10:46→10:47)
[2021-10-26] MEDS ORDERED: NOREPINEPHRINE D5W PREMIX 16,000 MCG/500 ML BAG IVPB SCH (11:00)
[2021-10-26] MEDS: OCTREOTIDE ACETATE 200 MCG, OCTREOTIDE ACETATE 1,000 MCG in DEXTROSE 5%-WATER - 496 ML IVPB SCH (15:30)
[2021-10-26] MEDS: MUPIROCIN 2% TOPICAL OINTMENT FOR DECOLONIZATION NS SCH ×2 (15:41→22:19)
[2021-10-26] MEDS ORDERED: dilTIAZem HCL 50 MG/10 ML - 10 ML VIAL IVPUSH PRN (15:41)
[2021-10-26 19:33] LABS: HEMOGLOBIN 8.4 GM/dL (10.7-15.3); MCH 29.6 pg (25.7-33.7); MCHC 32.1 g/dl (32.0-36.0); MEAN CELL VOLUME 92.2 fl (80-96); MEAN PLT VOLUME 8.2 fl (7.5-11.1); PLATELET COUNT 179 10^3/uL (134-434); RBC 2.82 M/mm3 (3.60-5.2); RDW 16.3 % (11.6-15.6); WHITE BLOOD COUNT 21.7 K/mm3 (4.0-10.0)
[2021-10-26 19:53] LABS: CALCIUM 8.3 mg/dL (8.5-10.1)
[2021-10-26 19:57] LABS: CREATININE 1.2 mg/dL (0.55-1.3)
[2021-10-26 19:59] LABS: BILIRUBIN,TOTAL 1.8 mg/dL (0.2-1); TOT PROT 6.1 g/dl (6.4-8.2)
[2021-10-26] MEDS ORDERED: METOPROLOL TARTRATE 5 MG/5 ML VIAL IVPUSH PRN (20:07)
[2021-10-26 20:20] LABS: BLOOD UREA NITROGEN 75.2 mg/dL (7-18)
[2021-10-26] MEDS: CHLORHEXIDINE GLUCONATE 4% CLEANSER FOR DECOLONIZATION TP SCH (22:19)
[2021-10-26 23:38] LABS: HEMATOCRIT 23.6 % (32.4-45.2); HEMOGLOBIN 7.9 GM/dL (10.7-15.3); MCH 29.9 pg (25.7-33.7); MCHC 33.2 g/dl (32.0-36.0); MEAN CELL VOLUME 89.9 fl (80-96); PLATELET COUNT 96 10^3/uL (134-434); RBC 2.63 M/mm3 (3.60-5.2); RDW 15.6 % (11.6-15.6); WHITE BLOOD COUNT 26.6 K/mm3 (4.0-10.0)
[2021-10-27 07:46] LABS: CALCIUM 8.2 mg/dL (8.5-10.1)
[2021-10-27 07:47] LABS: ALBUMIN 2.7 g/dl (3.4-5.0); BLOOD UREA NITROGEN 69.3 mg/dL (7-18); MAGNESIUM 1.8 mg/dL (1.8-2.4)
[2021-10-27 07:50] LABS: BILIRUBIN,TOTAL 1.1 mg/dL (0.2-1); CREATININE 1.3 mg/dL (0.55-1.3); PHOSPHOROUS 3.2 mg/dL (2.5-4.9); TOT PROT 5.3 g/dl (6.4-8.2)
[2021-10-27 07:56] LABS: MCH 30.5 pg (25.7-33.7); MCHC 33.5 g/dl (32.0-36.0); MEAN CELL VOLUME 90.9 fl (80-96); MEAN PLT VOLUME 8.4 fl (7.5-11.1); PLATELET COUNT 145 10^3/uL (134-434); RDW 15.6 % (11.6-15.6)
[2021-10-27 08:28] LABS: INR 1.73 (0.83-1.09)
[2021-10-27 08:40] LABS: HEMOGLOBIN 6.7 GM/dL (10.7-15.3); WHITE BLOOD COUNT 30.2 K/mm3 (4.0-10.0)
[2021-10-27] MEDS ORDERED: cefTRIAXone SODIUM 1 GM VIAL ONE (09:28)
[2021-10-27] MEDS ORDERED: DEXTROSE 5%-WATER - 50 ML IVPB ONE (09:29)
[2021-10-27] MEDS ORDERED: OCTREOTIDE ACETATE 200 MCG, OCTREOTIDE ACETATE 1,000 MCG in DEXTROSE 5%-WATER - 496 ML IVPB SCH (09:30)
[2021-10-27] MEDS: MUPIROCIN 2% TOPICAL OINTMENT FOR DECOLONIZATION NS SCH ×2 (10:13→22:47)
[2021-10-27] MEDS: COLLAGENASE CLOSTRIDIUM HIST. 30 GRAMS TUBE TP SCH (10:14)
[2021-10-27 11:13] LABS: ANISOCYTOSIS 2+; MACROCYTOSIS 0; PLATELET ESTIMATE DECREASED
[2021-10-27] MEDS: CEFTRIAXONE 1 GM in DEXTROSE 5%-WATER - 50 ML IVPB SCH (12:00)
[2021-10-27] MEDS: SODIUM CHLORIDE 1,000 ML IV SCH (12:00)
[2021-10-27] MEDS ORDERED: LACTATED RINGERS SOLUTION 1000 ML INFUS.BAG IV ONE (13:17)
[2021-10-27 19:01] LABS: HEMATOCRIT 22.4 % (32.4-45.2); HEMOGLOBIN 7.3 GM/dL (10.7-15.3); MCH 30.2 pg (25.7-33.7); MCHC 32.5 g/dl (32.0-36.0); MEAN CELL VOLUME 92.6 fl (80-96); MEAN PLT VOLUME 7.8 fl (7.5-11.1); PLATELET COUNT 87 10^3/uL (134-434); RBC 2.42 M/mm3 (3.60-5.2); RDW 16.4 % (11.6-15.6); WHITE BLOOD COUNT 17.9 K/mm3 (4.0-10.0)
[2021-10-27] MEDS: OCTREOTIDE ACETATE 200 MCG, OCTREOTIDE ACETATE 1,000 MCG in DEXTROSE 5%-WATER - 496 ML IVPB SCH (19:08)
[2021-10-27] MEDS: CHLORHEXIDINE GLUCONATE 4% CLEANSER FOR DECOLONIZATION TP SCH (22:47)
[2021-10-27] MEDS: PANTOPRAZOLE SODIUM 160 MG in SODIUM CHLORIDE 290 ML IVPB SCH (22:47)
[2021-10-28] MEDS: SODIUM CHLORIDE 1,000 ML IV SCH ×3 (00:53→19:27)
[2021-10-28] MEDS: PANTOPRAZOLE SODIUM 160 MG in SODIUM CHLORIDE 290 ML IVPB SCH ×3 (04:25→21:50)
[2021-10-28 06:50] LABS: HEMATOCRIT 19.5 % (32.4-45.2); MCH 30.6 pg (25.7-33.7); MCHC 33.7 g/dl (32.0-36.0); MEAN CELL VOLUME 90.7 fl (80-96); MEAN PLT VOLUME 7.6 fl (7.5-11.1); PLATELET COUNT 71 10^3/uL (134-434); RBC 2.15 M/mm3 (3.60-5.2); RDW 16.8 % (11.6-15.6)
[2021-10-28 06:58] LABS: INR 1.53 (0.83-1.09); PROTHROMBIN TIME (PATIENT) 17.7 SEC (9.7-13.0)
[2021-10-28 07:04] LABS: HEMOGLOBIN 6.6 GM/dL (10.7-15.3)
[2021-10-28 07:10] LABS: CALCIUM 7.8 mg/dL (8.5-10.1)
[2021-10-28 07:11] LABS: ALBUMIN 2.5 g/dl (3.4-5.0)
[2021-10-28 07:14] LABS: CREATININE 0.8 mg/dL (0.55-1.3)
[2021-10-28 07:15] LABS: BILIRUBIN,TOTAL 0.8 mg/dL (0.2-1); TOT PROT 5.3 g/dl (6.4-8.2)
[2021-10-28 07:25] LABS: BLOOD UREA NITROGEN 33.1 mg/dL (7-18)
[2021-10-28] MEDS ORDERED: DEXTROSE 5%-WATER - 50 ML IVPB ONE (10:02)
[2021-10-28] MEDS ORDERED: cefTRIAXone SODIUM 1 GM VIAL ONE (10:02)
[2021-10-28] MEDS: CEFTRIAXONE 1 GM in DEXTROSE 5%-WATER - 50 ML IVPB SCH (10:20)
[2021-10-28] MEDS: COLLAGENASE CLOSTRIDIUM HIST. 30 GRAMS TUBE TP SCH (10:21)
[2021-10-28] MEDS: MUPIROCIN 2% TOPICAL OINTMENT FOR DECOLONIZATION NS SCH ×2 (10:22→21:40)
[2021-10-28] MEDS ORDERED: ACETAMINOPHEN 1000 MG/100 ML BAG IVPB PRN (15:40)
[2021-10-28] MEDS: OCTREOTIDE ACETATE 200 MCG, OCTREOTIDE ACETATE 1,000 MCG in DEXTROSE 5%-WATER - 496 ML IVPB SCH (17:32)
[2021-10-28] MEDS: CHLORHEXIDINE GLUCONATE 4% CLEANSER FOR DECOLONIZATION TP SCH (21:54)
[2021-10-29] MEDS ORDERED: LACTATED RINGERS SOLUTION 1000 ML INFUS.BAG IV ONE (00:14)
[2021-10-29 07:24] LABS: HEMATOCRIT 21.2 % (32.4-45.2); MCH 30.4 pg (25.7-33.7); MCHC 33.2 g/dl (32.0-36.0); MEAN CELL VOLUME 91.8 fl (80-96); PLATELET COUNT 82 10^3/uL (134-434); RBC 2.31 M/mm3 (3.60-5.2); RDW 16.3 % (11.6-15.6); WHITE BLOOD COUNT 9.5 K/mm3 (4.0-10.0)
[2021-10-29 07:30] LABS: INR 1.39 (0.83-1.09)
[2021-10-29 08:18] LABS: BLOOD UREA NITROGEN 15.1 mg/dL (7-18); CALCIUM 7.6 mg/dL (8.5-10.1)
[2021-10-29 08:19] LABS: ALBUMIN 2.3 g/dl (3.4-5.0)
[2021-10-29 08:21] LABS: CREATININE 0.7 mg/dL (0.55-1.3)
[2021-10-29 08:22] LABS: BILIRUBIN,TOTAL 1.2 mg/dL (0.2-1); TOT PROT 5.1 g/dl (6.4-8.2)
[2021-10-29] MEDS: OCTREOTIDE ACETATE 200 MCG, OCTREOTIDE ACETATE 1,000 MCG in DEXTROSE 5%-WATER - 496 ML IVPB SCH ×2 (08:45→21:05)
[2021-10-29] MEDS: CEFTRIAXONE 1 GM in DEXTROSE 5%-WATER - 50 ML IVPB SCH (09:30)
[2021-10-29] MEDS: MUPIROCIN 2% TOPICAL OINTMENT FOR DECOLONIZATION NS SCH ×2 (10:49→21:01)
[2021-10-29] MEDS ORDERED: DEXTROSE 5%-WATER - 50 ML IVPB ONE (10:58)
[2021-10-29] MEDS ORDERED: cefTRIAXone SODIUM 1 GM VIAL ONE (10:58)
[2021-10-29] MEDS ORDERED: AMINO ACIDS 4.25%/D5W 1,000 ML IV SCH (13:00)
[2021-10-29] MEDS: COLLAGENASE CLOSTRIDIUM HIST. 30 GRAMS TUBE TP SCH (13:40)
[2021-10-29 15:28] VITALS: BMI 46.5
[2021-10-29] MEDS: MULTIVIT INJ. ADULT COMBO WITH VIT K 1 COMBO 10 ML VIAL IV SCH (15:50)
[2021-10-29] MEDS: PANTOPRAZOLE SODIUM 160 MG in SODIUM CHLORIDE 290 ML IVPB SCH (20:33)
[2021-10-29] MEDS: CHLORHEXIDINE GLUCONATE 4% CLEANSER FOR DECOLONIZATION TP SCH (21:02)
[2021-10-30] MEDS: MELATONIN 5 MG TABLETS PO PRN (01:05)
[2021-10-30 07:40] LABS: HEMATOCRIT 25.2 % (32.4-45.2); HEMOGLOBIN 8.5 GM/dL (10.7-15.3); MCH 30.8 pg (25.7-33.7); MCHC 33.9 g/dl (32.0-36.0); MEAN CELL VOLUME 90.8 fl (80-96); MEAN PLT VOLUME 8.3 fl (7.5-11.1); PLATELET COUNT 98 10^3/uL (134-434); RBC 2.78 M/mm3 (3.60-5.2); RDW 16.3 % (11.6-15.6); WHITE BLOOD COUNT 9.1 K/mm3 (4.0-10.0)
[2021-10-30 07:49] LABS: INR 1.38 (0.83-1.09); PROTHROMBIN TIME (PATIENT) 15.9 SEC (9.7-13.0)
[2021-10-30 08:24] LABS: CALCIUM 7.3 mg/dL (8.5-10.1)
[2021-10-30 08:25] LABS: ALBUMIN 2.2 g/dl (3.4-5.0); BLOOD UREA NITROGEN 9.1 mg/dL (7-18)
[2021-10-30 08:28] LABS: CREATININE 0.7 mg/dL (0.55-1.3)
[2021-10-30 08:29] LABS: TOT PROT 5.3 g/dl (6.4-8.2)
[2021-10-30 08:30] LABS: BILIRUBIN,TOTAL 1.2 mg/dL (0.2-1)
[2021-10-30] MEDS ORDERED: cefTRIAXone SODIUM 1 GM VIAL ONE (09:23)
[2021-10-30] MEDS ORDERED: DEXTROSE 5%-WATER - 50 ML IVPB ONE (09:23)
[2021-10-30] MEDS: MUPIROCIN 2% TOPICAL OINTMENT FOR DECOLONIZATION NS SCH ×2 (09:47→21:49)
[2021-10-30] MEDS: COLLAGENASE CLOSTRIDIUM HIST. 30 GRAMS TUBE TP SCH (09:47)
[2021-10-30] MEDS: MULTIVIT INJ. ADULT COMBO WITH VIT K 1 COMBO 10 ML VIAL IV SCH (12:38)
[2021-10-30] MEDS: CEFTRIAXONE 1 GM in DEXTROSE 5%-WATER - 50 ML IVPB SCH (16:00)
[2021-10-30] MEDS: PANTOPRAZOLE SODIUM 40 MG VIAL IVPUSH SCH (21:49)
[2021-10-30] MEDS: CHLORHEXIDINE GLUCONATE 4% CLEANSER FOR DECOLONIZATION TP SCH (21:49)
[2021-10-30] MEDS: NYSTATIN POWDER 100,000 UNITS/GM - 15 GM TOPICAL POWDER TP SCH (21:49)
[2021-10-31 07:25] LABS: HEMATOCRIT 27.4 % (32.4-45.2); HEMOGLOBIN 9.3 GM/dL (10.7-15.3); MCH 30.9 pg (25.7-33.7); MEAN CELL VOLUME 90.7 fl (80-96); PLATELET COUNT 113 10^3/uL (134-434); RBC 3.02 M/mm3 (3.60-5.2); RDW 16.7 % (11.6-15.6); WHITE BLOOD COUNT 10.4 K/mm3 (4.0-10.0)
[2021-10-31 07:28] LABS: INR 1.35 (0.83-1.09); PROTHROMBIN TIME (PATIENT) 15.6 SEC (9.7-13.0)
[2021-10-31 07:53] LABS: CALCIUM 7.3 mg/dL (8.5-10.1)
[2021-10-31 07:54] LABS: ALBUMIN 2.2 g/dl (3.4-5.0); BLOOD UREA NITROGEN 7.1 mg/dL (7-18)
[2021-10-31 07:56] LABS: CREATININE 0.6 mg/dL (0.55-1.3)
[2021-10-31 07:57] LABS: TOT PROT 5.6 g/dl (6.4-8.2)
[2021-10-31] MEDS: MUPIROCIN 2% TOPICAL OINTMENT FOR DECOLONIZATION NS SCH (09:28)
[2021-10-31] MEDS: NYSTATIN POWDER 100,000 UNITS/GM - 15 GM TOPICAL POWDER TP SCH (09:28)
[2021-10-31] MEDS: COLLAGENASE CLOSTRIDIUM HIST. 30 GRAMS TUBE TP SCH (09:29)
[2021-10-31] MEDS: PANTOPRAZOLE SODIUM 40 MG VIAL IVPUSH SCH ×2 (09:29→21:06)
[2021-10-31] MEDS: MULTIVIT INJ. ADULT COMBO WITH VIT K 1 COMBO 10 ML VIAL IV SCH (12:28)
[2021-10-31] MEDS: CEFTRIAXONE 1 GM in DEXTROSE 5%-WATER - 50 ML IVPB SCH (16:10)
[2021-10-31] MEDS ORDERED: cefTRIAXone SODIUM 1 GM VIAL ONE (17:03)
[2021-10-31] MEDS ORDERED: DEXTROSE 5%-WATER - 50 ML IVPB ONE (17:03)
[2021-10-31] MEDS: MELATONIN 5 MG TABLETS PO PRN (21:06)
[2021-10-31] MEDS: CHLORHEXIDINE GLUCONATE 4% CLEANSER FOR DECOLONIZATION TP SCH (21:06)
[2021-11-01 07:31] LABS: HEMATOCRIT 27.1 % (32.4-45.2); HEMOGLOBIN 9.1 GM/dL (10.7-15.3); MCH 30.7 pg (25.7-33.7); MCHC 33.4 g/dl (32.0-36.0); MEAN CELL VOLUME 91.9 fl (80-96); MEAN PLT VOLUME 8.1 fl (7.5-11.1); PLATELET COUNT 117 10^3/uL (134-434); RBC 2.95 M/mm3 (3.60-5.2); RDW 17.6 % (11.6-15.6); WHITE BLOOD COUNT 10.1 K/mm3 (4.0-10.0)
[2021-11-01 07:48] LABS: CALCIUM 7.5 mg/dL (8.5-10.1)
[2021-11-01 07:49] LABS: ALBUMIN 2.2 g/dl (3.4-5.0); BLOOD UREA NITROGEN 6.7 mg/dL (7-18); MAGNESIUM 1.8 mg/dL (1.8-2.4)
[2021-11-01 07:52] LABS: CREATININE 0.6 mg/dL (0.55-1.3)
[2021-11-01 07:53] LABS: BILIRUBIN,TOTAL 1.1 mg/dL (0.2-1)
[2021-11-01 07:54] LABS: TOT PROT 5.7 g/dl (6.4-8.2)
[2021-11-01 08:37] LABS: INR 1.47 (0.83-1.09)
[2021-11-01] MEDS: NYSTATIN POWDER 100,000 UNITS/GM - 15 GM TOPICAL POWDER TP SCH (09:02)
[2021-11-01] MEDS: PANTOPRAZOLE SODIUM 40 MG VIAL IVPUSH SCH ×2 (09:02→21:23)
[2021-11-01] MEDS: COLLAGENASE CLOSTRIDIUM HIST. 30 GRAMS TUBE TP SCH (09:03)
[2021-11-01] MEDS: MULTIVIT INJ. ADULT COMBO WITH VIT K 1 COMBO 10 ML VIAL IV SCH (12:36)
[2021-11-01] MEDS: CEFTRIAXONE 1 GM in DEXTROSE 5%-WATER - 50 ML IVPB SCH (15:46)
[2021-11-01] MEDS ORDERED: METOPROLOL TARTRATE 5 MG/5 ML VIAL IVPUSH PRN (20:16)
[2021-11-02] MEDS: MELATONIN 5 MG TABLETS PO PRN ×2 (01:06→22:25)
[2021-11-02 06:42] LABS: HEMATOCRIT 26.8 % (32.4-45.2); MCH 30.4 pg (25.7-33.7); MCHC 33.5 g/dl (32.0-36.0); MEAN CELL VOLUME 90.6 fl (80-96); MEAN PLT VOLUME 8.2 fl (7.5-11.1); PLATELET COUNT 134 10^3/uL (134-434); RBC 2.96 M/mm3 (3.60-5.2); RDW 16.5 % (11.6-15.6); WHITE BLOOD COUNT 10.8 K/mm3 (4.0-10.0)
[2021-11-02 07:04] LABS: CALCIUM 7.4 mg/dL (8.5-10.1)
[2021-11-02 07:05] LABS: ALBUMIN 2.1 g/dl (3.4-5.0); BLOOD UREA NITROGEN 6.8 mg/dL (7-18)
[2021-11-02 07:08] LABS: CREATININE 0.6 mg/dL (0.55-1.3)
[2021-11-02 07:09] LABS: BILIRUBIN,TOTAL 1.3 mg/dL (0.2-1); TOT PROT 5.7 g/dl (6.4-8.2)
[2021-11-02] MEDS ORDERED: POTASSIUM CHLORIDE TABS 20 MEQ TABLET.ER (FP) PO ONE (07:57)
[2021-11-02] MEDS: PANTOPRAZOLE SODIUM 40 MG VIAL IVPUSH SCH ×2 (10:35→22:25)
[2021-11-02] MEDS: COLLAGENASE CLOSTRIDIUM HIST. 30 GRAMS TUBE TP SCH (10:36)
[2021-11-02] MEDS: NYSTATIN POWDER 100,000 UNITS/GM - 15 GM TOPICAL POWDER TP SCH (10:36)
[2021-11-02] MEDS ORDERED: MULTIVIT INJ. ADULT COMBO WITH VIT K 1 COMBO 10 ML VIAL IV SCH (13:00)
[2021-11-02] MEDS ORDERED: VANCOMYCIN PREMIX 1.5 GM 1,500 MG/300 ML BAG IVPB ONE (14:21)
[2021-11-02] MEDS ORDERED: PIPERACILLIN/TAZOBACTAM 3.375 GM VIAL IVPB ONE (21:27)
[2021-11-02] MEDS ORDERED: DEXTROSE 5%-WATER - 50 ML IVPB ONE (21:27)
[2021-11-02] MEDS: PIPERACILLIN/TAZOB 3.375 GM 3.375 GM in DEXTROSE 5%-WATER - 50 ML IVPB SCH (22:25)
[2021-11-03] MEDS ORDERED: PIPERACILLIN/TAZOBACTAM 3.375 GM VIAL IVPB ONE ×3 (03:25→20:49)
[2021-11-03] MEDS ORDERED: DEXTROSE 5%-WATER - 50 ML IVPB ONE ×3 (03:25→20:49)
[2021-11-03] MEDS: PIPERACILLIN/TAZOB 3.375 GM 3.375 GM in DEXTROSE 5%-WATER - 50 ML IVPB SCH ×3 (03:51→21:07)
[2021-11-03 07:24] LABS: BASO % 0.5 % (0-2.0); EOS % 2.1 % (0-4.5); HEMATOCRIT 26.7 % (32.4-45.2); HEMOGLOBIN 9.1 GM/dL (10.7-15.3); LYMPH % 6.7 % (8-40); MCH 30.7 pg (25.7-33.7); MCHC 34.1 g/dl (32.0-36.0); MEAN CELL VOLUME 89.9 fl (80-96); MEAN PLT VOLUME 7.8 fl (7.5-11.1); MONO % 10.3 % (3.8-10.2); NEUT % 80.4 % (42.8-82.8); PLATELET COUNT 146 10^3/uL (134-434); RBC 2.97 M/mm3 (3.60-5.2); RDW 16.6 % (11.6-15.6); WHITE BLOOD COUNT 8.2 K/mm3 (4.0-10.0)
[2021-11-03 07:56] LABS: BLOOD UREA NITROGEN 7.9 mg/dL (7-18); CALCIUM 7.5 mg/dL (8.5-10.1); CREATININE 0.7 mg/dL (0.55-1.3); MAGNESIUM 1.8 mg/dL (1.8-2.4)
[2021-11-03 07:57] LABS: BILIRUBIN,TOTAL 1.2 mg/dL (0.2-1); TOT PROT 5.8 g/dl (6.4-8.2)
[2021-11-03] MEDS: PANTOPRAZOLE SODIUM 40 MG VIAL IVPUSH SCH ×2 (09:24→21:09)
[2021-11-03] MEDS: COLLAGENASE CLOSTRIDIUM HIST. 30 GRAMS TUBE TP SCH (09:24)
[2021-11-03] MEDS: NYSTATIN POWDER 100,000 UNITS/GM - 15 GM TOPICAL POWDER TP SCH (09:24)
[2021-11-03] MEDS: metoPROLOL SUCCINATE 25 MG TAB.SR.24H (FP) PO SCH (14:06)
[2021-11-04] MEDS ORDERED: PIPERACILLIN/TAZOBACTAM 3.375 GM VIAL IVPB ONE ×3 (02:56→20:24)
[2021-11-04] MEDS ORDERED: DEXTROSE 5%-WATER - 50 ML IVPB ONE ×2 (02:57→09:35)
[2021-11-04] MEDS: PIPERACILLIN/TAZOB 3.375 GM 3.375 GM in DEXTROSE 5%-WATER - 50 ML IVPB SCH ×3 (04:26→20:50)
[2021-11-04 07:41] LABS: BASO % 0.8 % (0-2.0); EOS % 2.8 % (0-4.5); HEMOGLOBIN 9.2 GM/dL (10.7-15.3); LYMPH % 6.7 % (8-40); MEAN CELL VOLUME 90.8 fl (80-96); MEAN PLT VOLUME 7.8 fl (7.5-11.1); MONO % 10.2 % (3.8-10.2); NEUT % 79.5 % (42.8-82.8); PLATELET COUNT 162 10^3/uL (134-434); RBC 3.09 M/mm3 (3.60-5.2); RDW 16.9 % (11.6-15.6); WHITE BLOOD COUNT 7.4 K/mm3 (4.0-10.0)
[2021-11-04 08:06] LABS: ALBUMIN 2.1 g/dl (3.4-5.0); BLOOD UREA NITROGEN 7.6 mg/dL (7-18)
[2021-11-04 08:07] LABS: TOT PROT 5.8 g/dl (6.4-8.2)
[2021-11-04 08:10] LABS: CALCIUM 7.4 mg/dL (8.5-10.1); CREATININE 0.7 mg/dL (0.55-1.3); MAGNESIUM 1.9 mg/dL (1.8-2.4)
[2021-11-04] MEDS: PANTOPRAZOLE SODIUM 40 MG VIAL IVPUSH SCH ×2 (10:17→21:36)
[2021-11-04] MEDS: COLLAGENASE CLOSTRIDIUM HIST. 30 GRAMS TUBE TP SCH (10:18)
[2021-11-04] MEDS: NYSTATIN POWDER 100,000 UNITS/GM - 15 GM TOPICAL POWDER TP SCH (10:18)
[2021-11-04] MEDS: metoPROLOL SUCCINATE 25 MG TAB.SR.24H (FP) PO SCH (10:18)
[2021-11-05] MEDS: MELATONIN 5 MG TABLETS PO PRN ×2 (00:06→23:18)
[2021-11-05] MEDS ORDERED: PIPERACILLIN/TAZOBACTAM 3.375 GM VIAL IVPB ONE ×3 (04:57→20:00)
[2021-11-05] MEDS ORDERED: DEXTROSE 5%-WATER - 50 ML IVPB ONE ×3 (04:58→20:00)
[2021-11-05] MEDS: PIPERACILLIN/TAZOB 3.375 GM 3.375 GM in DEXTROSE 5%-WATER - 50 ML IVPB SCH ×3 (05:01→20:05)
[2021-11-05 08:02] LABS: HEMATOCRIT 29.6 % (32.4-45.2); HEMOGLOBIN 9.8 GM/dL (10.7-15.3); MCH 29.8 pg (25.7-33.7); MCHC 33.1 g/dl (32.0-36.0); MEAN PLT VOLUME 7.8 fl (7.5-11.1); PLATELET COUNT 206 10^3/uL (134-434); RBC 3.29 M/mm3 (3.60-5.2); RDW 16.8 % (11.6-15.6); WHITE BLOOD COUNT 8.6 K/mm3 (4.0-10.0)
[2021-11-05 08:53] LABS: ALBUMIN 2.1 g/dl (3.4-5.0)
[2021-11-05 08:56] LABS: BILIRUBIN,DIRECT 0.5 mg/dL (0.0-0.2)
[2021-11-05 08:58] LABS: BILIRUBIN,TOTAL 0.9 mg/dL (0.2-1)
[2021-11-05] MEDS: PANTOPRAZOLE SODIUM 40 MG VIAL IVPUSH SCH ×2 (10:44→21:35)
[2021-11-05] MEDS: metoPROLOL SUCCINATE 25 MG TAB.SR.24H (FP) PO SCH (10:44)
[2021-11-05] MEDS: NYSTATIN POWDER 100,000 UNITS/GM - 15 GM TOPICAL POWDER TP SCH (14:24)
[2021-11-05] MEDS: COLLAGENASE CLOSTRIDIUM HIST. 30 GRAMS TUBE TP SCH (14:25)
[2021-11-06] MEDS ORDERED: PIPERACILLIN/TAZOBACTAM 3.375 GM VIAL IVPB ONE ×3 (03:56→20:14)
[2021-11-06] MEDS ORDERED: DEXTROSE 5%-WATER - 50 ML IVPB ONE ×3 (03:57→20:15)
[2021-11-06] MEDS: PIPERACILLIN/TAZOB 3.375 GM 3.375 GM in DEXTROSE 5%-WATER - 50 ML IVPB SCH ×3 (05:00→20:20)
[2021-11-06] MEDS: PANTOPRAZOLE SODIUM 40 MG VIAL IVPUSH SCH ×2 (09:36→21:52)
[2021-11-06] MEDS: metoPROLOL SUCCINATE 25 MG TAB.SR.24H (FP) PO SCH (09:36)
[2021-11-06] MEDS: COLLAGENASE CLOSTRIDIUM HIST. 30 GRAMS TUBE TP SCH (09:36)
[2021-11-06] MEDS: NYSTATIN POWDER 100,000 UNITS/GM - 15 GM TOPICAL POWDER TP SCH (09:37)
[2021-11-06] MEDS: MELATONIN 5 MG TABLETS PO PRN (22:43)
[2021-11-07] MEDS ORDERED: PIPERACILLIN/TAZOBACTAM 3.375 GM VIAL IVPB ONE ×3 (04:55→17:22)
[2021-11-07] MEDS ORDERED: DEXTROSE 5%-WATER - 50 ML IVPB ONE ×3 (04:56→17:22)
[2021-11-07] MEDS: PIPERACILLIN/TAZOB 3.375 GM 3.375 GM in DEXTROSE 5%-WATER - 50 ML IVPB SCH ×3 (04:57→17:33)
[2021-11-07] MEDS: PANTOPRAZOLE SODIUM 40 MG VIAL IVPUSH SCH ×2 (10:19→21:45)
[2021-11-07] MEDS: metoPROLOL SUCCINATE 25 MG TAB.SR.24H (FP) PO SCH (10:20)
[2021-11-07] MEDS: NYSTATIN POWDER 100,000 UNITS/GM - 15 GM TOPICAL POWDER TP SCH (10:20)
[2021-11-07] MEDS ORDERED: MECLIZINE HCL 12.5 MG TABLET PO PRN (10:45)
[2021-11-07] MEDS: COLLAGENASE CLOSTRIDIUM HIST. 30 GRAMS TUBE TP SCH (12:38)
[2021-11-07] MEDS ORDERED: HYDROCHLOROTHIAZIDE 12.5 MG CAPSULE (FP) PO SCH (14:32)
[2021-11-07] MEDS ORDERED: METOPROLOL TARTRATE 5 MG/5 ML VIAL IVPUSH PRN (14:32)
[2021-11-07] MEDS ORDERED: MELATONIN 5 MG TABLETS PO PRN (14:32)
[2021-11-07] MEDS ORDERED: PATIENT'S OWN MEDICATION (NON-FORMULARY) (Multivit-Min/Fa/Lycopen/Lutein [Centrum Silver T PO SCH (14:32)
[2021-11-07] MEDS ORDERED: ASPIRIN 81 MG CHEWABLE TABLETS PO SCH (14:32)
[2021-11-07] MEDS ORDERED: metoPROLOL SUCCINATE 25 MG TAB.SR.24H (FP) PO SCH (14:32)
[2021-11-07] MEDS ORDERED: oxyCODONE HCL 5 MG TABLET PO PRN (14:32)
[2021-11-07] MEDS ORDERED: ACETAMINOPHEN 325 MG TABLET (FP) PO PRN (14:32)
[2021-11-07] MEDS ORDERED: GABAPENTIN 300 MG CAPSULE PO SCH (14:32)
[2021-11-07] MEDS ORDERED: POLYMYXIN B SULFATE/TMP 10 ML OPHTHALMIC SOLUTION OS SCH (14:32)
[2021-11-07] MEDS ORDERED: METOLAZONE 5 MG TABLET PO SCH (14:32)
[2021-11-07] MEDS ORDERED: SERTRALINE HCL 50 MG TABLET (FP) PO SCH (14:32)
[2021-11-07] MEDS ORDERED: PIPERACILLIN/TAZOB 3.375 GM 3.375 GM in DEXTROSE 5%-WATER - 50 ML IVPB SCH ×2 (15:15→18:00)
[2021-11-08] MEDS ORDERED: PIPERACILLIN/TAZOBACTAM 3.375 GM VIAL IVPB ONE ×3 (01:32→17:13)
[2021-11-08] MEDS ORDERED: DEXTROSE 5%-WATER - 50 ML IVPB ONE ×3 (01:33→17:13)
[2021-11-08] MEDS: PIPERACILLIN/TAZOB 3.375 GM 3.375 GM in DEXTROSE 5%-WATER - 50 ML IVPB SCH ×3 (01:42→17:37)
[2021-11-08 08:55] LABS: BASO % 0.6 % (0-2.0); EOS % 2.2 % (0-4.5); HEMATOCRIT 31.1 % (32.4-45.2); LYMPH % 8.4 % (8-40); MCH 29.1 pg (25.7-33.7); MCHC 32.3 g/dl (32.0-36.0); MEAN CELL VOLUME 90.2 fl (80-96); MEAN PLT VOLUME 7.6 fl (7.5-11.1); MONO % 9.9 % (3.8-10.2); NEUT % 78.9 % (42.8-82.8); PLATELET COUNT 244 10^3/uL (134-434); RBC 3.45 M/mm3 (3.60-5.2); RDW 17.3 % (11.6-15.6); WHITE BLOOD COUNT 9.7 K/mm3 (4.0-10.0)
[2021-11-08 09:18] LABS: ALBUMIN 2.3 g/dl (3.4-5.0); CALCIUM 7.8 mg/dL (8.5-10.1)
[2021-11-08 09:20] LABS: CREATININE 0.8 mg/dL (0.55-1.3)
[2021-11-08 09:21] LABS: BILIRUBIN,TOTAL 0.8 mg/dL (0.2-1); TOT PROT 6.6 g/dl (6.4-8.2)
[2021-11-08] MEDS: MULTIVITAMINS (DAILY MVI) TABLET (FP) PO SCH (10:04)
[2021-11-08] MEDS: metoPROLOL SUCCINATE 25 MG TAB.SR.24H (FP) PO SCH (10:04)
[2021-11-08] MEDS: LISINOPRIL 10 MG TABLET PO SCH (10:04)
[2021-11-08] MEDS: COLLAGENASE CLOSTRIDIUM HIST. 30 GRAMS TUBE TP SCH (10:05)
[2021-11-08] MEDS: NYSTATIN POWDER 100,000 UNITS/GM - 15 GM TOPICAL POWDER TP SCH (10:05)
[2021-11-08] MEDS: PANTOPRAZOLE SODIUM 40 MG VIAL IVPUSH SCH ×2 (10:05→22:49)
[2021-11-09] MEDS: ACETAMINOPHEN 325 MG TABLET (FP) PO PRN ×2 (01:13→23:21)
[2021-11-09] MEDS ORDERED: MELATONIN 5 MG TABLETS PO ONE (01:20)
[2021-11-09] MEDS: PANTOPRAZOLE SODIUM 40 MG VIAL IVPUSH SCH ×2 (09:49→22:35)
[2021-11-09] MEDS: LISINOPRIL 10 MG TABLET PO SCH (09:50)
[2021-11-09] MEDS: COLLAGENASE CLOSTRIDIUM HIST. 30 GRAMS TUBE TP SCH (09:50)
[2021-11-09] MEDS: MULTIVITAMINS (DAILY MVI) TABLET (FP) PO SCH (09:50)
[2021-11-09] MEDS: metoPROLOL SUCCINATE 25 MG TAB.SR.24H (FP) PO SCH (09:50)
[2021-11-09] MEDS: NYSTATIN POWDER 100,000 UNITS/GM - 15 GM TOPICAL POWDER TP SCH (10:20)
[2021-11-10] MEDS: oxyCODONE HCL 5 MG TABLET PO PRN (02:21)
[2021-11-10 07:19] LABS: HEMATOCRIT 30.6 % (32.4-45.2); HEMOGLOBIN 9.8 GM/dL (10.7-15.3); MCH 29.1 pg (25.7-33.7); MCHC 32.2 g/dl (32.0-36.0); MEAN CELL VOLUME 90.4 fl (80-96); MEAN PLT VOLUME 7.2 fl (7.5-11.1); PLATELET COUNT 198 10^3/uL (134-434); RBC 3.38 M/mm3 (3.60-5.2); RDW 17.5 % (11.6-15.6); WHITE BLOOD COUNT 5.7 K/mm3 (4.0-10.0)
[2021-11-10 07:40] LABS: ALBUMIN 2.2 g/dl (3.4-5.0)
[2021-11-10 07:43] LABS: BILIRUBIN,DIRECT 0.3 mg/dL (0.0-0.2)
[2021-11-10 07:45] LABS: BILIRUBIN,TOTAL 0.6 mg/dL (0.2-1); TOT PROT 6.2 g/dl (6.4-8.2)
[2021-11-10] MEDS: metoPROLOL SUCCINATE 25 MG TAB.SR.24H (FP) PO SCH (09:24)
[2021-11-10] MEDS: PANTOPRAZOLE 40 MG TABLET PO SCH ×2 (09:24→21:42)
[2021-11-10] MEDS: LISINOPRIL 10 MG TABLET PO SCH (09:24)
[2021-11-10] MEDS: MULTIVITAMINS (DAILY MVI) TABLET (FP) PO SCH (09:24)
[2021-11-10] MEDS: COLLAGENASE CLOSTRIDIUM HIST. 30 GRAMS TUBE TP SCH (09:24)
[2021-11-10] MEDS: NYSTATIN POWDER 100,000 UNITS/GM - 15 GM TOPICAL POWDER TP SCH (09:24)
[2021-11-10] MEDS ORDERED: FLU VACC QS2021-22(6MOS UP)/PF 60 MCG/0.5 ML SYRINGE IM ONE (15:12)
[2021-11-11] MEDS: oxyCODONE HCL 5 MG TABLET PO PRN (01:49)
[2021-11-11 09:39] LABS: HEMATOCRIT 29.7 % (32.4-45.2); HEMOGLOBIN 9.6 GM/dL (10.7-15.3); MCH 29.2 pg (25.7-33.7); MCHC 32.4 g/dl (32.0-36.0); MEAN CELL VOLUME 90.2 fl (80-96); MEAN PLT VOLUME 7.4 fl (7.5-11.1); PLATELET COUNT 192 10^3/uL (134-434); RBC 3.29 M/mm3 (3.60-5.2); RDW 17.4 % (11.6-15.6); WHITE BLOOD COUNT 5.5 K/mm3 (4.0-10.0)
[2021-11-11] MEDS: COLLAGENASE CLOSTRIDIUM HIST. 30 GRAMS TUBE TP SCH (10:11)
[2021-11-11] MEDS: MULTIVITAMINS (DAILY MVI) TABLET (FP) PO SCH (10:11)
[2021-11-11] MEDS: metoPROLOL SUCCINATE 25 MG TAB.SR.24H (FP) PO SCH (10:11)
[2021-11-11] MEDS: LISINOPRIL 10 MG TABLET PO SCH (10:11)
[2021-11-11] MEDS: NYSTATIN POWDER 100,000 UNITS/GM - 15 GM TOPICAL POWDER TP SCH (10:11)
[2021-11-11] MEDS: PANTOPRAZOLE 40 MG TABLET PO SCH ×2 (10:11→22:40)
[2021-11-11 10:19] LABS: CALCIUM 8.2 mg/dL (8.5-10.1)
[2021-11-11 10:20] LABS: BLOOD UREA NITROGEN 9.3 mg/dL (7-18)
[2021-11-11 10:23] LABS: CREATININE 0.7 mg/dL (0.55-1.3)
[2021-11-12] MEDS ORDERED: HEPARIN NA (PORCINE) 5,000 UNITS/ML 1ML VIAL ONE (07:57)
[2021-11-12] MEDS ORDERED: LIDOCAINE HCL 1%, 10 MG/ML (20ML VIAL) ONE (07:57)
[2021-11-12] MEDS: PANTOPRAZOLE 40 MG TABLET PO SCH ×2 (09:48→21:38)
[2021-11-12] MEDS: metoPROLOL SUCCINATE 25 MG TAB.SR.24H (FP) PO SCH (09:48)
[2021-11-12] MEDS: MULTIVITAMINS (DAILY MVI) TABLET (FP) PO SCH (09:48)
[2021-11-12] MEDS: LISINOPRIL 10 MG TABLET PO SCH (09:48)
[2021-11-12] MEDS: NYSTATIN POWDER 100,000 UNITS/GM - 15 GM TOPICAL POWDER TP SCH (09:48)
[2021-11-12] MEDS: COLLAGENASE CLOSTRIDIUM HIST. 30 GRAMS TUBE TP SCH (09:48)
[2021-11-12] MEDS ORDERED: MIDAZOLAM HCL 2 MG/2 ML SINGLE DOSE VIAL ONE (10:20)
[2021-11-12] MEDS ORDERED: PROPOFOL 20 ML ONE (10:32)
[2021-11-12] MEDS ORDERED: LIDOCAINE HCL 1%, 10 MG/ML (20ML VIAL) SQ ONE (10:39)
[2021-11-12] MEDS ORDERED: IOHEXOL 300 MG/ML INFUS..BTL IJ ONE (10:42)
[2021-11-12] MEDS ORDERED: HEPARIN NA (PORCINE) 5,000 UNITS/ML 1ML VIAL SQ ONE (10:45)
[2021-11-12] MEDS ORDERED: oxyCODONE HCL 5 MG TABLET PO PRN (11:31)
[2021-11-12] MEDS ORDERED: MECLIZINE HCL 12.5 MG TABLET PO PRN (11:31)
[2021-11-12 13:15] LABS: HIV INTERPRETATION NEGATIVE (NEGATIVE)
[2021-11-12] MEDS: ACETAMINOPHEN 325 MG TABLET (FP) PO PRN (21:38)
[2021-11-13 08:30] LABS: BASO % 0.7 % (0-2.0); EOS % 2.8 % (0-4.5); HEMATOCRIT 30.9 % (32.4-45.2); HEMOGLOBIN 9.9 GM/dL (10.7-15.3); LYMPH % 10.3 % (8-40); MCH 28.8 pg (25.7-33.7); MEAN CELL VOLUME 89.9 fl (80-96); MEAN PLT VOLUME 7.3 fl (7.5-11.1); MONO % 11.2 % (3.8-10.2); PLATELET COUNT 153 10^3/uL (134-434); RBC 3.44 M/mm3 (3.60-5.2); RDW 16.9 % (11.6-15.6); WHITE BLOOD COUNT 5.1 K/mm3 (4.0-10.0)
[2021-11-13 08:55] LABS: CALCIUM 8.6 mg/dL (8.5-10.1)
[2021-11-13 09:01] LABS: CREATININE 0.7 mg/dL (0.55-1.3)
[2021-11-13] MEDS: NYSTATIN POWDER 100,000 UNITS/GM - 15 GM TOPICAL POWDER TP SCH (09:23)
[2021-11-13] MEDS: PANTOPRAZOLE 40 MG TABLET PO SCH ×2 (09:24→21:22)
[2021-11-13] MEDS: LISINOPRIL 10 MG TABLET PO SCH (09:24)
[2021-11-13] MEDS: COLLAGENASE CLOSTRIDIUM HIST. 30 GRAMS TUBE TP SCH (09:24)
[2021-11-13] MEDS: metoPROLOL SUCCINATE 25 MG TAB.SR.24H (FP) PO SCH (09:24)
[2021-11-13] MEDS: MULTIVITAMINS (DAILY MVI) TABLET (FP) PO SCH (09:25)
[2021-11-14 08:01] LABS: BASO % 0.6 % (0-2.0); EOS % 2.3 % (0-4.5); HEMATOCRIT 29.8 % (32.4-45.2); HEMOGLOBIN 9.8 GM/dL (10.7-15.3); LYMPH % 11.4 % (8-40); MCH 29.3 pg (25.7-33.7); MCHC 32.8 g/dl (32.0-36.0); MEAN CELL VOLUME 89.2 fl (80-96); MEAN PLT VOLUME 7.3 fl (7.5-11.1); MONO % 11.9 % (3.8-10.2); NEUT % 73.8 % (42.8-82.8); PLATELET COUNT 149 10^3/uL (134-434); RBC 3.34 M/mm3 (3.60-5.2); RDW 17.4 % (11.6-15.6); WHITE BLOOD COUNT 6.2 K/mm3 (4.0-10.0)
[2021-11-14 08:20] LABS: BLOOD UREA NITROGEN 9.6 mg/dL (7-18)
[2021-11-14 08:23] LABS: CREATININE 0.7 mg/dL (0.55-1.3)
[2021-11-14] MEDS: NYSTATIN POWDER 100,000 UNITS/GM - 15 GM TOPICAL POWDER TP SCH (09:18)
[2021-11-14] MEDS: COLLAGENASE CLOSTRIDIUM HIST. 30 GRAMS TUBE TP SCH (09:18)
[2021-11-14] MEDS: MULTIVITAMINS (DAILY MVI) TABLET (FP) PO SCH (09:19)
[2021-11-14] MEDS: LISINOPRIL 10 MG TABLET PO SCH (09:19)
[2021-11-14] MEDS: PANTOPRAZOLE 40 MG TABLET PO SCH ×2 (09:19→21:27)
[2021-11-14] MEDS: metoPROLOL SUCCINATE 25 MG TAB.SR.24H (FP) PO SCH (09:19)
[2021-11-14] MEDS ORDERED: MELATONIN 5 MG TABLETS PO ONE (23:49)
[2021-11-15] MEDS: ACETAMINOPHEN 325 MG TABLET (FP) PO PRN (00:32)
[2021-11-15] MEDS: LISINOPRIL 10 MG TABLET PO SCH ×2 (10:34→10:58)
[2021-11-15] MEDS: PANTOPRAZOLE 40 MG TABLET PO SCH ×2 (10:34→22:13)
[2021-11-15] MEDS: metoPROLOL SUCCINATE 25 MG TAB.SR.24H (FP) PO SCH ×2 (10:34→10:58)
[2021-11-15] MEDS: MULTIVITAMINS (DAILY MVI) TABLET (FP) PO SCH (10:34)
[2021-11-15] MEDS: COLLAGENASE CLOSTRIDIUM HIST. 30 GRAMS TUBE TP SCH (15:22)
[2021-11-15] MEDS: NYSTATIN POWDER 100,000 UNITS/GM - 15 GM TOPICAL POWDER TP SCH (15:22)
[2021-11-16] MEDS: LISINOPRIL 10 MG TABLET PO SCH (09:26)
[2021-11-16] MEDS: PANTOPRAZOLE 40 MG TABLET PO SCH ×2 (09:26→21:50)
[2021-11-16] MEDS: NYSTATIN POWDER 100,000 UNITS/GM - 15 GM TOPICAL POWDER TP SCH (09:26)
[2021-11-16] MEDS: MULTIVITAMINS (DAILY MVI) TABLET (FP) PO SCH (09:26)
[2021-11-16] MEDS: COLLAGENASE CLOSTRIDIUM HIST. 30 GRAMS TUBE TP SCH (09:27)
[2021-11-16] MEDS: metoPROLOL SUCCINATE 25 MG TAB.SR.24H (FP) PO SCH (10:26)
[2021-11-16 16:17] LABS: SARS-CoV-2 NAA Not Detected (Not Detected)
[2021-11-17] MEDS: MULTIVITAMINS (DAILY MVI) TABLET (FP) PO SCH (09:24)
[2021-11-17] MEDS: metoPROLOL SUCCINATE 25 MG TAB.SR.24H (FP) PO SCH (09:24)
[2021-11-17] MEDS: PANTOPRAZOLE 40 MG TABLET PO SCH (09:24)
[2021-11-17] MEDS: LISINOPRIL 10 MG TABLET PO SCH (09:24)
[2021-11-17] MEDS: NYSTATIN POWDER 100,000 UNITS/GM - 15 GM TOPICAL POWDER TP SCH (09:24)
[2021-11-17] MEDS: COLLAGENASE CLOSTRIDIUM HIST. 30 GRAMS TUBE TP SCH (09:25)
[2021-11-17 10:34] VITALS: PULSE 104
[2021-11-17 10:35] VITALS: BP 116/64; TEMP 98.9
== END 2021-11-17 13:26 | DRG 377 ==
LOC: JER 10:55 → JERBED 12:05 → JICU 10-26 14:16 → J4W 11-01 18:21 → J7W 11-07 14:04
PROVIDERS: ADMIT Hospitalist
PROC: 30233K1 Transfusion of Nonautologous Frozen Plasma into Peripheral Vein, Percutaneous Approach (ICD-10-PCS; 2021-10-26)
PROC: 30233N1 Transfusion of Nonautologous Red Blood Cells into Peripheral Vein, Percutaneous Approach (ICD-10-PCS; 2021-10-26)
PROC: 30233R1 Transfusion of Nonautologous Platelets into Peripheral Vein, Percutaneous Approach (ICD-10-PCS; 2021-10-28)
PROC: B519YZZ Fluoroscopy of Inferior Vena Cava using Other Contrast (ICD-10-PCS; 2021-11-12)
PROC: 06H03DZ Insertion of Intraluminal Device into Inferior Vena Cava, Percutaneous Approach (ICD-10-PCS; principal; 2021-11-12 10:00)
DX: K92.2 Gastrointestinal hemorrhage, unspecified (principal); I21.A1 Myocardial infarction type 2; R57.1 Hypovolemic shock; I81 Portal vein thrombosis; K72.00 Acute and subacute hepatic failure without coma; I26.99 Other pulmonary embolism without acute cor pulmonale; R57.8 Other shock; C22.0 Liver cell carcinoma; N39.0 Urinary tract infection, site not specified; D62 Acute posthemorrhagic anemia; E87.2 Acidosis; D68.9 Coagulation defect, unspecified; D68.59 Other primary thrombophilia; I82.403 Acute embolism and thrombosis of unspecified deep veins of lower extremity, bilateral; J90 Pleural effusion, not elsewhere classified; Z68.42 Body mass index [BMI] 45.0-49.9, adult; I50.32 Chronic diastolic (congestive) heart failure; K74.60 Unspecified cirrhosis of liver; I73.9 Peripheral vascular disease, unspecified; E66.01 Morbid (severe) obesity due to excess calories; K21.9 Gastro-esophageal reflux disease without esophagitis; I48.91 Unspecified atrial fibrillation; D72.829 Elevated white blood cell count, unspecified; E05.90 Thyrotoxicosis, unspecified without thyrotoxic crisis or storm; B96.1 Klebsiella pneumoniae [K. pneumoniae] as the cause of diseases classified elsewhere; R41.82 Altered mental status, unspecified; F32.A Depression, unspecified; M79.7 Fibromyalgia; I11.0 Hypertensive heart disease with heart failure
CPT/HCPCS: 36415; 36430; 36511; 36600; 71045-TC-FY; 71260-TC; 74177-TC; 74178-TC; 76000-TC-FY; 76700-TC; 80048; 80053; 80076; 80307; 81003; 82105; 82140; 82248; 82272; 82550; 82553; 82803; 83010; 83605; 83615; 83690; 83735; 83880; 84100; 84439; 84443; 84460; 84478; 84481; 84484; 85025; 85027; 85045; 85384; 85610; 85730; 86140; 86803; 86850; 86900; 86901; 86922; 87040; 87086; 87186; 87340; 87389; 87522; 90686; 93005; 93010; 93306-TC; 93970-TC; 94760; 97116-GP; 97162-GP; 99285-25; C9803-CS; J1644; P9017; P9034; P9038; P9058; Q9967; U0003; U0005

== ENCOUNTER 2022-12-18 13:02 | Inpatient (IN) | payer OTHER ==
[2022-12-18 13:15] VITALS: BMI 43.5
[2022-12-18 15:50] LABS: BASO % 0.4 % (0-2.0); EOS % 1.2 % (0-4.5); HEMATOCRIT 38.8 % (32.4-45.2); HEMOGLOBIN 12.8 GM/dL (10.7-15.3); LYMPH % 7.5 % (8-40); MCH 28.6 pg (25.7-33.7); MCHC 33.1 g/dl (32.0-36.0); MEAN CELL VOLUME 86.3 fl (80-96); MEAN PLT VOLUME 7.4 fl (7.5-11.1); MONO % 8.2 % (3.8-10.2); NEUT % 82.7 % (42.8-82.8); PLATELET COUNT 148 10^3/uL (134-434); RDW 14.4 % (11.6-15.6); WHITE BLOOD COUNT 8.9 K/mm3 (4.0-10.0)
[2022-12-18 15:59] LABS: INR 1.26 (0.83-1.09); PROTHROMBIN TIME (PATIENT) 14.6 SEC (9.7-13.0)
[2022-12-18 16:02] LABS: ACTIVATED PTT 38.6 SECONDS (25.2-36.5)
[2022-12-18 16:07] LABS: POTASSIUM 4.8 mmol/L (3.5-5.1)
[2022-12-18 16:09] LABS: CALCIUM 8.9 mg/dL (8.5-10.1)
[2022-12-18 16:11] LABS: ALBUMIN 3.6 g/dl (3.4-5.0); BLOOD UREA NITROGEN 34.4 mg/dL (7-18)
[2022-12-18 16:13] LABS: CREATININE 1.4 mg/dL (0.55-1.3)
[2022-12-18 16:14] LABS: BILIRUBIN,TOTAL 0.9 mg/dL (0.2-1); TOT PROT 8.4 g/dl (6.4-8.2)
[2022-12-18] MEDS ORDERED: MECLIZINE HCL 25 MG TABLET (FP) PO PRN (18:27)
[2022-12-18] MEDS ORDERED: FUROSEMIDE 40 MG/4 ML INJECTABLE VIAL IVPUSH ONE (18:40)
[2022-12-18] MEDS ORDERED: FUROSEMIDE 40 MG/4 ML INJECTABLE VIAL ONE (19:00)
[2022-12-18] MEDS: HEPARIN NA (PORCINE) 5,000 UNITS/ML 1ML VIAL SQ SCH (22:02)
[2022-12-19 07:34] LABS: BASO % 0.5 % (0-2.0); EOS % 2.4 % (0-4.5); HEMATOCRIT 36.7 % (32.4-45.2); HEMOGLOBIN 11.9 GM/dL (10.7-15.3); MCH 28.2 pg (25.7-33.7); MCHC 32.3 g/dl (32.0-36.0); MEAN CELL VOLUME 87.4 fl (80-96); MEAN PLT VOLUME 7.8 fl (7.5-11.1); MONO % 9.2 % (3.8-10.2); NEUT % 77.9 % (42.8-82.8); PLATELET COUNT 129 10^3/uL (134-434); RDW 13.9 % (11.6-15.6); WHITE BLOOD COUNT 7.1 K/mm3 (4.0-10.0)
[2022-12-19 07:59] LABS: CALCIUM 8.9 mg/dL (8.5-10.1)
[2022-12-19 08:01] LABS: BLOOD UREA NITROGEN 35.9 mg/dL (7-18)
[2022-12-19 08:03] LABS: CREATININE 1.3 mg/dL (0.55-1.3)
[2022-12-19] MEDS: PANTOPRAZOLE 40 MG TABLET PO SCH (09:16)
[2022-12-19] MEDS: ESCITALOPRAM OXALATE 10 MG TABLET PO SCH (09:16)
[2022-12-19] MEDS: HEPARIN NA (PORCINE) 5,000 UNITS/ML 1ML VIAL SQ SCH ×2 (09:16→22:16)
[2022-12-19] MEDS ORDERED: ACETAMINOPHEN 325 MG TABLET (FP) PO PRN (09:48)
[2022-12-19] MEDS ORDERED: PATIENT'S OWN MEDICATION (NON-FORMULARY) (Escitalopram Oxalate [Escitalopram Oxalate] 5 MG PO SCH (10:00)
[2022-12-19] MEDS ORDERED: metoPROLOL SUCCINATE 25 MG TAB.SR.24H (FP) PO SCH (22:00)
[2022-12-20 08:20] LABS: POTASSIUM 4.6 mmol/L (3.5-5.1)
[2022-12-20 08:25] LABS: BLOOD UREA NITROGEN 32.7 mg/dL (7-18); MAGNESIUM 1.8 mg/dL (1.8-2.4)
[2022-12-20 08:28] LABS: CREATININE 1.1 mg/dL (0.55-1.3); PHOSPHOROUS 3.8 mg/dL (2.5-4.9)
[2022-12-20] MEDS: ESCITALOPRAM OXALATE 10 MG TABLET PO SCH (10:31)
[2022-12-20] MEDS: HEPARIN NA (PORCINE) 5,000 UNITS/ML 1ML VIAL SQ SCH ×2 (10:31→22:10)
[2022-12-20] MEDS: metoPROLOL SUCCINATE 25 MG TAB.SR.24H (FP) PO SCH (10:31)
[2022-12-20] MEDS: PANTOPRAZOLE 40 MG TABLET PO SCH (10:31)
[2022-12-20] MEDS: SILVER SULFADIAZINE 1% TOP CREAM 50 GM JAR TP SCH (18:03)
[2022-12-20] MEDS ORDERED: ACETAMINOPHEN 325 MG TABLET (FP) PO PRN (23:45)
[2022-12-21] MEDS: HEPARIN NA (PORCINE) 5,000 UNITS/ML 1ML VIAL SQ SCH ×3 (05:40→21:19)
[2022-12-21 06:58] LABS: POTASSIUM 4.9 mmol/L (3.5-5.1)
[2022-12-21 07:01] LABS: BLOOD UREA NITROGEN 30.2 mg/dL (7-18); MAGNESIUM 1.9 mg/dL (1.8-2.4)
[2022-12-21 07:05] LABS: CREATININE 1.1 mg/dL (0.55-1.3); PHOSPHOROUS 4.4 mg/dL (2.5-4.9)
[2022-12-21] MEDS: ESCITALOPRAM OXALATE 10 MG TABLET PO SCH (10:31)
[2022-12-21] MEDS: metoPROLOL SUCCINATE 25 MG TAB.SR.24H (FP) PO SCH (10:31)
[2022-12-21] MEDS: SILVER SULFADIAZINE 1% TOP CREAM 50 GM JAR TP SCH (10:31)
[2022-12-21] MEDS: PANTOPRAZOLE 40 MG TABLET PO SCH (10:32)
[2022-12-22] MEDS: HEPARIN NA (PORCINE) 5,000 UNITS/ML 1ML VIAL SQ SCH (05:56)
[2022-12-22 08:19] LABS: POTASSIUM 4.5 mmol/L (3.5-5.1)
[2022-12-22 08:28] LABS: CALCIUM 8.8 mg/dL (8.5-10.1)
[2022-12-22 08:29] LABS: MAGNESIUM 1.8 mg/dL (1.8-2.4)
[2022-12-22 08:31] LABS: BLOOD UREA NITROGEN 26.9 mg/dL (7-18)
[2022-12-22 08:32] LABS: PHOSPHOROUS 3.8 mg/dL (2.5-4.9)
[2022-12-22 08:43] VITALS: BP 126/67; PULSE 84; RESP 18; TEMP 98.8
[2022-12-22] MEDS: ESCITALOPRAM OXALATE 10 MG TABLET PO SCH (10:10)
[2022-12-22] MEDS: metoPROLOL SUCCINATE 25 MG TAB.SR.24H (FP) PO SCH (10:10)
[2022-12-22] MEDS: PANTOPRAZOLE 40 MG TABLET PO SCH (10:10)
[2022-12-22] MEDS: SILVER SULFADIAZINE 1% TOP CREAM 50 GM JAR TP SCH (10:11)
== END 2022-12-22 14:55 | disposition home health service (06) | DRG 300 ==
LOC: JER 13:02 → JERBED 17:17 → J4S 22:36
PROVIDERS: ADMIT Internal Medicine; ATTEND Internal Medicine
DX: I82.403 Acute embolism and thrombosis of unspecified deep veins of lower extremity, bilateral (principal); I48.19 Other persistent atrial fibrillation; N17.9 Acute kidney failure, unspecified; I50.32 Chronic diastolic (congestive) heart failure; G62.9 Polyneuropathy, unspecified; K74.60 Unspecified cirrhosis of liver; Z86.718 Personal history of other venous thrombosis and embolism; R49.9 Unspecified voice and resonance disorder; K76.9 Liver disease, unspecified; I11.0 Hypertensive heart disease with heart failure; Z91.148 Patient's other noncompliance with medication regimen for other reason; R16.1 Splenomegaly, not elsewhere classified
CPT/HCPCS: 36415; 71045-TC-FY; 74018-TC-FY; 74170-TC; 80048; 80053; 82140; 83735; 83880; 84100; 84443; 84484; 85025; 85610; 85730; 93005; 93010; 93306-TC; 93970-TC; 97116-GP; 97162-GP; 99285-25; J1644; Q9967

== ENCOUNTER 2023-02-06 09:20 | Inpatient (IN) | payer OTHER ==
[2023-02-06] MEDS ORDERED: SODIUM CHLORIDE 1,000 ML IV ONE (10:01)
[2023-02-06 10:30] LABS: VENOUS BASE EXCESS -22.4 mmol/L (-2-2); VENOUS O2 SATURATION 62.4 % (70-80); VENOUS PCO2 29.1 mmHg (38-52)
[2023-02-06 10:35] LABS: VENOUS PH 7.022 (7.310-7.410)
[2023-02-06 10:40] LABS: BASO % 0.6 % (0-2.0); EOS % 0.8 % (0-4.5); HEMATOCRIT 42.1 % (32.4-45.2); HEMOGLOBIN 13.4 GM/dL (10.7-15.3); INR 1.17 (0.83-1.09); LYMPH % 4.4 % (8-40); MCH 29.3 pg (25.7-33.7); MCHC 31.9 g/dl (32.0-36.0); MEAN CELL VOLUME 91.9 fl (80-96); MONO % 4.4 % (3.8-10.2); NEUT % 89.8 % (42.8-82.8); PLATELET COUNT 189 10^3/uL (134-434); PROTHROMBIN TIME (PATIENT) 13.5 SEC (9.7-13.0); RBC 4.59 M/mm3 (3.60-5.2); RDW 16.8 % (11.6-15.6); WHITE BLOOD COUNT 10.7 K/mm3 (4.0-10.0)
[2023-02-06 10:43] LABS: ACTIVATED PTT 39.4 SECONDS (25.2-36.5)
[2023-02-06 11:09] LABS: CHLORIDE 109 mmol/L (98-107); SODIUM 130 mmol/L (136-145)
[2023-02-06 11:12] LABS: ALBUMIN 4.1 g/dl (3.4-5.0); CALCIUM 9.1 mg/dL (8.5-10.1); CO2 9 mmol/L (21-32); GLUCOSE,RANDOM 132 mg/dL (74-106)
[2023-02-06 11:15] LABS: CREATININE 5.7 mg/dL (0.55-1.3); SGOT/AST 29 U/L (15-37); SGPT/ALT 17 U/L (13-61)
[2023-02-06 11:17] LABS: BILIRUBIN,TOTAL 0.3 mg/dL (0.2-1)
[2023-02-06 11:18] LABS: ALK PHOS 96 U/L (45-117)
[2023-02-06 11:33] LABS: URINE APPEARANCE CLEAR; URINE BILIRUBIN NEGATIVE (NEGATIVE); URINE COLOR YELLOW; URINE GLUCOSE (UA) NEGATIVE (NEGATIVE); URINE KETONE NEGATIVE (NEGATIVE); URINE LEUK ESTERASE NEGATIVE (NEGATIVE); URINE NITRITE NEGATIVE (NEGATIVE); URINE PROTEIN NEGATIVE (NEGATIVE); URINE UROBILINOGEN 0.2 mg/dL (0.2-1.0)
[2023-02-06 12:04] LABS: ANION GAP 13 MMOL/L (8-16); BLOOD UREA NITROGEN 145.2 mg/dL (7-18); POTASSIUM 9.7 mmol/L (3.5-5.1)
[2023-02-06] MEDS ORDERED: SODIUM CHLORIDE 0.9% 500 ML INFUS.BAG IV ONE (12:51)
[2023-02-06 13:36] LABS: CHLORIDE 112 mmol/L (98-107); SODIUM 133 mmol/L (136-145)
[2023-02-06 13:40] LABS: CALCIUM 9.6 mg/dL (8.5-10.1); CO2 9 mmol/L (21-32); GLUCOSE,RANDOM 123 mg/dL (74-106)
[2023-02-06 13:43] LABS: CREATININE 5.6 mg/dL (0.55-1.3)
[2023-02-06 14:06] LABS: ANION GAP 12 MMOL/L (8-16); BLOOD UREA NITROGEN 150.3 mg/dL (7-18); POTASSIUM 9.4 mmol/L (3.5-5.1)
[2023-02-06] MEDS ORDERED: SODIUM BICARBONATE 8.4% 50 MEQ/50 ML VIAL IVPB ONE (14:44)
[2023-02-06 15:44] LABS: VENOUS O2 SATURATION 99.1 % (70-80); VENOUS PCO2 < 16.7 mmHg (38-52)
[2023-02-06 15:48] LABS: VENOUS PH 7.169 (7.310-7.410)
[2023-02-06 16:02] LABS: CHLORIDE 113 mmol/L (98-107); SODIUM 132 mmol/L (136-145)
[2023-02-06 16:03] LABS: CALCIUM 9.4 mg/dL (8.5-10.1); CO2 7 mmol/L (21-32); GLUCOSE,RANDOM 131 mg/dL (74-106)
[2023-02-06 16:07] LABS: CREATININE 5.4 mg/dL (0.55-1.3)
[2023-02-06 16:25] LABS: ANION GAP 12 MMOL/L (8-16); BLOOD UREA NITROGEN 151.6 mg/dL (7-18); POTASSIUM 9.1 mmol/L (3.5-5.1)
[2023-02-06] MEDS ORDERED: SODIUM BICARBONATE 8.4% 50 MEQ/50 ML DISP.SYRIN IVPUSH ONE ×3 (16:49→22:55)
[2023-02-06] MEDS ORDERED: SODIUM CHLORIDE 1,000 ML IV STA (16:54)
[2023-02-06] MEDS ORDERED: SODIUM BICARBONATE 8.4% 50 MEQ/50 ML DISP.SYRIN ONE (16:56)
[2023-02-06] MEDS ORDERED: SODIUM BICARBONATE 8.4% - 150 MEQ in DEXTROSE 5%-WATER - 950 ML IV SCH (17:00)
[2023-02-06] MEDS ORDERED: SODIUM BICARBONATE 8.4% 50 MEQ/50 ML VIAL ONE ×2 (17:25→23:03)
[2023-02-06] MEDS ORDERED: SODIUM ZIRCONIUM CYCLOSILICATE (LOKELMA) 10 GM PACKET ONE (17:25)
[2023-02-06] MEDS: SODIUM ZIRCONIUM CYCLOSILICATE (LOKELMA) 5 GM PACKET PO SCH ×3 (18:01→21:10)
[2023-02-06 18:44] LABS: ARTERIAL BLD GAS O2 SATURATION 58.1 % (95-98); ARTERIAL BLOOD GAS BASE EXCESS -20.9 mmol/L (-2-2); ARTERIAL BLOOD GAS PO2 42.1 mmHg (80-100)
[2023-02-06] MEDS ORDERED: LACTATED RINGERS SOLUTION 1,000 ML/1,000 ML INFUS.BAG IV SCH (18:45)
[2023-02-06 18:48] LABS: ARTERIAL BLOOD GAS pH 7.049 (7.350-7.450)
[2023-02-06] MEDS: SODIUM BICARBONATE 8.4% - 150 MEQ in DEXTROSE 5%-WATER - 950 ML IV SCH (19:59)
[2023-02-06] MEDS: SODIUM BICARBONATE 8.4% 50 MEQ/50 ML DISP.SYRIN IVPUSH SCH ×2 (19:59→21:21)
[2023-02-06] MEDS: CHLORHEXIDINE GLUCONATE 4% CLEANSER FOR DECOLONIZATION TP SCH (21:10)
[2023-02-06] MEDS: MUPIROCIN 2% TOPICAL OINTMENT FOR DECOLONIZATION NS SCH (21:10)
[2023-02-06] MEDS ORDERED: MELATONIN 5 MG TABLETS PO ONE (21:38)
[2023-02-06 22:16] LABS: VENOUS BASE EXCESS -13.4 mmol/L (-2-2); VENOUS O2 SATURATION 31.6 % (70-80); VENOUS PCO2 34.6 mmHg (38-52); VENOUS PH 7.209 (7.310-7.410)
[2023-02-06 22:35] LABS: CHLORIDE 114 mmol/L (98-107); SODIUM 139 mmol/L (136-145)
[2023-02-06 22:37] LABS: CALCIUM 8.1 mg/dL (8.5-10.1)
[2023-02-06 22:38] LABS: ALBUMIN 3.4 g/dl (3.4-5.0); CO2 15 mmol/L (21-32); GLUCOSE,RANDOM 103 mg/dL (74-106)
[2023-02-06 22:41] LABS: CREATININE 4.6 mg/dL (0.55-1.3); SGOT/AST 8 U/L (15-37); SGPT/ALT 13 U/L (13-61)
[2023-02-06 22:42] LABS: BILIRUBIN,TOTAL 0.3 mg/dL (0.2-1)
[2023-02-06 22:43] LABS: TOT PROT 7.2 g/dl (6.4-8.2)
[2023-02-06 22:44] LABS: ALK PHOS 76 U/L (45-117)
[2023-02-06 22:49] LABS: ANION GAP 11 MMOL/L (8-16); BLOOD UREA NITROGEN 149.5 mg/dL (7-18); LACTIC ACID 2.7 mmol/L (0.4-2.0); POTASSIUM 7.1 mmol/L (3.5-5.1)
[2023-02-06] MEDS ORDERED: DEXTROSE 50%-WATER 25 GM/50 ML DISP.SYRIN IVPUSH ONE (22:51)
[2023-02-06] MEDS ORDERED: CALCIUM GLUCONATE IN NACL 1 GM/50 ML BAG IVPB ONE (22:54)
[2023-02-06] MEDS ORDERED: INSULIN REGULAR HUMAN 100 UNITS/ML *VIAL IVPUSH ONE (22:54)
[2023-02-06] MEDS ORDERED: SODIUM ZIRCONIUM CYCLOSILICATE (LOKELMA) 5 GM PACKET PO ONE (22:55)
[2023-02-06] MEDS ORDERED: CALCIUM GLUCONATE 10% - 1,000 MG/10 ML VIAL ONE (23:03)
[2023-02-06] MEDS ORDERED: DEXTROSE 50%-WATER 25 GM/50 ML DISP.SYRIN ONE (23:04)
[2023-02-07 02:35] LABS: CHLORIDE 116 mmol/L (98-107); SODIUM 143 mmol/L (136-145)
[2023-02-07 02:38] LABS: ALBUMIN 3.2 g/dl (3.4-5.0); CO2 18 mmol/L (21-32); GLUCOSE,RANDOM 71 mg/dL (74-106)
[2023-02-07 02:41] LABS: CREATININE 4.4 mg/dL (0.55-1.3); SGOT/AST 8 U/L (15-37); SGPT/ALT 13 U/L (13-61)
[2023-02-07 02:42] LABS: CREATININE, URINE RANDOM 59.4 mg/dL (30-150)
[2023-02-07 02:43] LABS: BILIRUBIN,TOTAL 0.4 mg/dL (0.2-1); TOT PROT 6.7 g/dl (6.4-8.2)
[2023-02-07 02:44] LABS: ALK PHOS 71 U/L (45-117)
[2023-02-07 02:49] LABS: ANION GAP 9 MMOL/L (8-16); BLOOD UREA NITROGEN 151.1 mg/dL (7-18); POTASSIUM 6.5 mmol/L (3.5-5.1)
[2023-02-07] MEDS ORDERED: CALCIUM GLUCONATE 10% - 1,000 MG/10 ML VIAL IVPB ONE (06:30)
[2023-02-07] MEDS ORDERED: INSULIN REGULAR HUMAN 100 UNITS/ML *VIAL IVPUSH ONE (06:30)
[2023-02-07] MEDS ORDERED: DEXTROSE 50%-WATER 25 GM/50 ML DISP.SYRIN IVPUSH ONE (06:30)
[2023-02-07 07:27] LABS: BASO % 0.3 % (0-2.0); EOS % 1.8 % (0-4.5); HEMATOCRIT 34.5 % (32.4-45.2); HEMOGLOBIN 11.2 GM/dL (10.7-15.3); MCH 29.1 pg (25.7-33.7); MCHC 32.4 g/dl (32.0-36.0); MEAN CELL VOLUME 89.7 fl (80-96); MEAN PLT VOLUME 8.1 fl (7.5-11.1); MONO % 9.1 % (3.8-10.2); NEUT % 78.8 % (42.8-82.8); PLATELET COUNT 96 10^3/uL (134-434); RBC 3.85 M/mm3 (3.60-5.2); RDW 16.2 % (11.6-15.6)
[2023-02-07 07:44] LABS: CHLORIDE 113 mmol/L (98-107); SODIUM 142 mmol/L (136-145)
[2023-02-07 07:51] LABS: CALCIUM 8.6 mg/dL (8.5-10.1)
[2023-02-07 07:52] LABS: ALBUMIN 3.3 g/dl (3.4-5.0); CO2 18 mmol/L (21-32); CREATININE 4.5 mg/dL (0.55-1.3); GLUCOSE,RANDOM 88 mg/dL (74-106); MAGNESIUM 1.9 mg/dL (1.8-2.4); PHOSPHOROUS 3.2 mg/dL (2.5-4.9)
[2023-02-07 07:53] LABS: BILIRUBIN,TOTAL 0.5 mg/dL (0.2-1)
[2023-02-07 07:54] LABS: TOT PROT 6.9 g/dl (6.4-8.2)
[2023-02-07 07:55] LABS: ALK PHOS 69 U/L (45-117); SGOT/AST 8 U/L (15-37); SGPT/ALT 15 U/L (13-61)
[2023-02-07 08:12] LABS: ANION GAP 10 MMOL/L (8-16); BLOOD UREA NITROGEN 153.8 mg/dL (7-18); POTASSIUM 6.2 mmol/L (3.5-5.1)
[2023-02-07] MEDS: SODIUM ZIRCONIUM CYCLOSILICATE (LOKELMA) 5 GM PACKET PO SCH ×2 (09:25→23:25)
[2023-02-07] MEDS: MUPIROCIN 2% TOPICAL OINTMENT FOR DECOLONIZATION NS SCH ×2 (09:26→23:25)
[2023-02-07] MEDS: ESCITALOPRAM OXALATE 10 MG TABLET PO SCH (09:29)
[2023-02-07] MEDS ORDERED: TORSEMIDE 20 MG TABLET (FP) PO SCH (10:00)
[2023-02-07] MEDS ORDERED: PANTOPRAZOLE 40 MG TABLET PO SCH ×2 (10:00→22:30)
[2023-02-07] MEDS ORDERED: metoPROLOL SUCCINATE 25 MG TAB.SR.24H (FP) PO SCH (10:00)
[2023-02-07] MEDS ORDERED: SODIUM ZIRCONIUM CYCLOSILICATE (LOKELMA) 5 GM PACKET PO ONE ×2 (10:00→22:55)
[2023-02-07] MEDS ORDERED: PATIENT'S OWN MEDICATION (NON-FORMULARY) (Spironolactone [Spironolactone] 50 MG Tablet) PO SCH (10:00)
[2023-02-07] MEDS: SODIUM BICARBONATE 8.4% - 150 MEQ in DEXTROSE 5%-WATER - 950 ML IV SCH (10:28)
[2023-02-07 12:28] LABS: CHLORIDE 111 mmol/L (98-107); POTASSIUM 5.7 mmol/L (3.5-5.1); SODIUM 140 mmol/L (136-145)
[2023-02-07 12:30] LABS: ALBUMIN 3.3 g/dl (3.4-5.0); CALCIUM 8.5 mg/dL (8.5-10.1)
[2023-02-07 12:31] LABS: ANION GAP 10 MMOL/L (8-16); CO2 19 mmol/L (21-32); GLUCOSE,RANDOM 115 mg/dL (74-106)
[2023-02-07 12:34] LABS: CREATININE 4.4 mg/dL (0.55-1.3); SGOT/AST 11 U/L (15-37); SGPT/ALT 15 U/L (13-61)
[2023-02-07 12:36] LABS: BILIRUBIN,TOTAL 0.6 mg/dL (0.2-1); TOT PROT 6.7 g/dl (6.4-8.2)
[2023-02-07 12:37] LABS: ALK PHOS 67 U/L (45-117)
[2023-02-07 12:42] LABS: BLOOD UREA NITROGEN 149.8 mg/dL (7-18)
[2023-02-07] MEDS ORDERED: SODIUM CHLORIDE 1,000 ML IV STA (12:42)
[2023-02-07] MEDS ORDERED: SODIUM CHLORIDE 0.9% 500 ML INFUS.BAG IV ONE (15:02)
[2023-02-07] MEDS: DEXTROSE 5% IV SCH (17:33)
[2023-02-07] MEDS: SODIUM BICARBONATE IV SCH (17:33)
[2023-02-07] MEDS: WATER IV SCH (17:33)
[2023-02-07] MEDS: SILVER SULFADIAZINE 1% TOP CREAM 50 GM JAR TP SCH (17:34)
[2023-02-07] MEDS ORDERED: LACTATED RINGERS SOLUTION 1000 ML INFUS.BAG IV ONE (20:08)
[2023-02-07] MEDS: PHENYLEPHRINE NS PREMIX 50,000 MCG/500 ML BAG CVP SCH (22:00)
[2023-02-07 23:13] LABS: HEMATOCRIT 20.5 % (32.4-45.2); MCH 29.9 pg (25.7-33.7); MCHC 31.1 g/dl (32.0-36.0); MEAN PLT VOLUME 8.1 fl (7.5-11.1); PLATELET COUNT 69 10^3/uL (134-434); RBC 2.14 M/mm3 (3.60-5.2); RDW 17.7 % (11.6-15.6); WHITE BLOOD COUNT 3.9 K/mm3 (4.0-10.0)
[2023-02-07] MEDS: CHLORHEXIDINE GLUCONATE 4% CLEANSER FOR DECOLONIZATION TP SCH (23:25)
[2023-02-07 23:35] LABS: HEMOGLOBIN 6.4 GM/dL (10.7-15.3)
[2023-02-08 00:03] LABS: VENOUS BASE EXCESS 13.4 mmol/L (-2-2); VENOUS O2 SATURATION 35.5 % (70-80); VENOUS PCO2 53.7 mmHg (38-52); VENOUS PH 7.472 (7.310-7.410)
[2023-02-08] MEDS ORDERED: PANTOPRAZOLE SODIUM 80 MG in SODIUM CHLORIDE 100 ML IVPB SCH (06:15)
[2023-02-08 07:20] LABS: BASO % 0.5 % (0-2.0); EOS % 2.4 % (0-4.5); HEMATOCRIT 34.4 % (32.4-45.2); HEMOGLOBIN 11.3 GM/dL (10.7-15.3); LYMPH % 11.9 % (8-40); MCH 29.2 pg (25.7-33.7); MCHC 32.8 g/dl (32.0-36.0); MEAN CELL VOLUME 89.1 fl (80-96); MONO % 9.1 % (3.8-10.2); NEUT % 76.1 % (42.8-82.8); PLATELET COUNT 81 10^3/uL (134-434); RBC 3.86 M/mm3 (3.60-5.2); RDW 16.4 % (11.6-15.6); WHITE BLOOD COUNT 8.5 K/mm3 (4.0-10.0)
[2023-02-08 07:48] LABS: CHLORIDE 110 mmol/L (98-107); POTASSIUM 5.7 mmol/L (3.5-5.1); SODIUM 140 mmol/L (136-145)
[2023-02-08 07:52] LABS: ALBUMIN 3.1 g/dl (3.4-5.0); ANION GAP 8 MMOL/L (8-16); CALCIUM 8.1 mg/dL (8.5-10.1); CO2 22 mmol/L (21-32); GLUCOSE,RANDOM 87 mg/dL (74-106); MAGNESIUM 1.4 mg/dL (1.8-2.4)
[2023-02-08 07:55] LABS: CREATININE 2.9 mg/dL (0.55-1.3); PHOSPHOROUS 2.4 mg/dL (2.5-4.9); SGOT/AST 12 U/L (15-37); SGPT/ALT 13 U/L (13-61)
[2023-02-08 07:57] LABS: BILIRUBIN,TOTAL 1.1 mg/dL (0.2-1); TOT PROT 6.5 g/dl (6.4-8.2)
[2023-02-08 07:58] LABS: ALK PHOS 64 U/L (45-117)
[2023-02-08 08:03] LABS: BLOOD UREA NITROGEN 130.9 mg/dL (7-18)
[2023-02-08] MEDS ORDERED: MAGNESIUM SULF 50% (8.12 MEQ/2 ML-1 GM VIAL) IVPB ONE (08:17)
[2023-02-08] MEDS ORDERED: MAGNESIUM 2GM/50ML STERILE WATER IVPB IVPB ONE ×2 (08:30→09:30)
[2023-02-08] MEDS: SODIUM ZIRCONIUM CYCLOSILICATE (LOKELMA) 5 GM PACKET PO SCH ×2 (09:15→21:29)
[2023-02-08] MEDS: PHENYLEPHRINE NS PREMIX 50,000 MCG/500 ML BAG CVP SCH (09:16)
[2023-02-08] MEDS: ESCITALOPRAM OXALATE 10 MG TABLET PO SCH (09:16)
[2023-02-08] MEDS: SILVER SULFADIAZINE 1% TOP CREAM 50 GM JAR TP SCH (09:22)
[2023-02-08] MEDS: MUPIROCIN 2% TOPICAL OINTMENT FOR DECOLONIZATION NS SCH ×2 (09:24→21:29)
[2023-02-08] MEDS ORDERED: SODIUM CHLORIDE 1,000 ML IV STA ×3 (10:10→15:42)
[2023-02-08] MEDS ORDERED: PANTOPRAZOLE SODIUM 40 MG VIAL IVPUSH SCH (10:15)
[2023-02-08] MEDS ORDERED: SODIUM PHOSPHATE - 15 MM in SODIUM CHLORIDE 250 ML IVPB ONE (11:30)
[2023-02-08] MEDS ORDERED: SODIUM CHLORIDE 1,000 ML IV SCH (12:00)
[2023-02-08] MEDS ORDERED: VASOPRESSIN 20 UNITS/ML VIAL IV ONE (13:20)
[2023-02-08] MEDS ORDERED: PHENYLEPHRINE NS PREMIX 50,000 MCG/500 ML BAG CVP SCH (13:45)
[2023-02-08] MEDS: VASOPRESSIN 40 UNITS/100 ML BAG IV SCH (13:51)
[2023-02-08] MEDS ORDERED: LORazepam 2 MG/ML SDV VIAL IVPUSH ONE (14:12)
[2023-02-08] MEDS: NOREPINEPHRINE BITARTRATE/D5W 8 MG/250 ML BAG IVPB SCH (16:46)
[2023-02-08] MEDS: WATER IV SCH (16:55)
[2023-02-08] MEDS: SODIUM BICARBONATE IV SCH (16:55)
[2023-02-08] MEDS: DEXTROSE 5% IV SCH (16:55)
[2023-02-08] MEDS: SODIUM CHLORIDE 1,000 ML IV SCH (19:00)
[2023-02-08 20:26] LABS: BASO % 0.3 % (0-2.0); EOS % 1.5 % (0-4.5); HEMATOCRIT 30.8 % (32.4-45.2); HEMOGLOBIN 10.4 GM/dL (10.7-15.3); LYMPH % 6.4 % (8-40); MCH 29.5 pg (25.7-33.7); MCHC 33.7 g/dl (32.0-36.0); MEAN CELL VOLUME 87.3 fl (80-96); MEAN PLT VOLUME 7.3 fl (7.5-11.1); MONO % 9.3 % (3.8-10.2); NEUT % 82.5 % (42.8-82.8); PLATELET COUNT 136 10^3/uL (134-434); RBC 3.53 M/mm3 (3.60-5.2); WHITE BLOOD COUNT 11.6 K/mm3 (4.0-10.0)
[2023-02-08] MEDS: CHLORHEXIDINE GLUCONATE 4% CLEANSER FOR DECOLONIZATION TP SCH (21:29)
[2023-02-08] MEDS: PANTOPRAZOLE SODIUM 40 MG VIAL IVPUSH SCH (21:32)
[2023-02-09] MEDS: NOREPINEPHRINE BITARTRATE/D5W 8 MG/250 ML BAG IVPB SCH ×3 (00:54→16:30)
[2023-02-09 07:47] LABS: BASO % 0.4 % (0-2.0); EOS % 1.3 % (0-4.5); HEMATOCRIT 28.5 % (32.4-45.2); HEMOGLOBIN 9.4 GM/dL (10.7-15.3); LYMPH % 6.3 % (8-40); MCH 29.4 pg (25.7-33.7); MEAN CELL VOLUME 89.1 fl (80-96); MEAN PLT VOLUME 7.7 fl (7.5-11.1); MONO % 10.9 % (3.8-10.2); NEUT % 81.1 % (42.8-82.8); PLATELET COUNT 143 10^3/uL (134-434); RBC 3.19 M/mm3 (3.60-5.2); RDW 15.7 % (11.6-15.6)
[2023-02-09 08:08] LABS: POTASSIUM 5.9 mmol/L (3.5-5.1)
[2023-02-09 08:11] LABS: CALCIUM 7.8 mg/dL (8.5-10.1)
[2023-02-09 08:12] LABS: ALBUMIN 2.9 g/dl (3.4-5.0); MAGNESIUM 1.8 mg/dL (1.8-2.4)
[2023-02-09 08:15] LABS: CREATININE 1.7 mg/dL (0.55-1.3); PHOSPHOROUS 2.7 mg/dL (2.5-4.9)
[2023-02-09 08:52] LABS: BLOOD UREA NITROGEN 93.2 mg/dL (7-18)
[2023-02-09] MEDS: MUPIROCIN 2% TOPICAL OINTMENT FOR DECOLONIZATION NS SCH ×2 (09:02→21:11)
[2023-02-09] MEDS: PANTOPRAZOLE SODIUM 40 MG VIAL IVPUSH SCH ×2 (09:02→21:11)
[2023-02-09] MEDS: ESCITALOPRAM OXALATE 10 MG TABLET PO SCH (09:05)
[2023-02-09] MEDS: SODIUM ZIRCONIUM CYCLOSILICATE (LOKELMA) 5 GM PACKET PO SCH ×2 (09:05→21:11)
[2023-02-09] MEDS: SILVER SULFADIAZINE 1% TOP CREAM 50 GM JAR TP SCH (09:06)
[2023-02-09] MEDS: SODIUM CHLORIDE 1,000 ML IV SCH (09:07)
[2023-02-09] MEDS ORDERED: SODIUM CHLORIDE 500 ML IV STA (12:30)
[2023-02-09] MEDS: VASOPRESSIN 40 UNITS/100 ML BAG IV SCH ×2 (13:18→14:25)
[2023-02-09] MEDS: SODIUM CHLORIDE 0.45% 1,000 ML IV SCH (15:30)
[2023-02-09 19:04] LABS: BASO % 0.2 % (0-2.0); HEMOGLOBIN 8.5 GM/dL (10.7-15.3); LYMPH % 7.3 % (8-40); MCHC 32.7 g/dl (32.0-36.0); MEAN CELL VOLUME 88.6 fl (80-96); MONO % 8.4 % (3.8-10.2); NEUT % 83.1 % (42.8-82.8); PLATELET COUNT 125 10^3/uL (134-434); RBC 2.94 M/mm3 (3.60-5.2); RDW 16.3 % (11.6-15.6); WHITE BLOOD COUNT 10.5 K/mm3 (4.0-10.0)
[2023-02-09] MEDS: CHLORHEXIDINE GLUCONATE 4% CLEANSER FOR DECOLONIZATION TP SCH (21:11)
[2023-02-10 07:14] LABS: BASO % 0.2 % (0-2.0); EOS % 2.5 % (0-4.5); HEMATOCRIT 21.7 % (32.4-45.2); LYMPH % 9.6 % (8-40); MCH 29.2 pg (25.7-33.7); MCHC 32.4 g/dl (32.0-36.0); MEAN CELL VOLUME 90.2 fl (80-96); MEAN PLT VOLUME 7.6 fl (7.5-11.1); MONO % 11.1 % (3.8-10.2); NEUT % 76.6 % (42.8-82.8); PLATELET COUNT 89 10^3/uL (134-434); RDW 16.3 % (11.6-15.6); WHITE BLOOD COUNT 6.8 K/mm3 (4.0-10.0)
[2023-02-10 07:29] LABS: POTASSIUM 5.4 mmol/L (3.5-5.1)
[2023-02-10 07:31] LABS: CALCIUM 8.1 mg/dL (8.5-10.1)
[2023-02-10 07:32] LABS: ALBUMIN 2.7 g/dl (3.4-5.0)
[2023-02-10 07:33] LABS: MAGNESIUM 1.7 mg/dL (1.8-2.4)
[2023-02-10 07:35] LABS: CREATININE 1.3 mg/dL (0.55-1.3); PHOSPHOROUS 1.9 mg/dL (2.5-4.9)
[2023-02-10 07:37] LABS: BILIRUBIN,TOTAL 0.5 mg/dL (0.2-1); TOT PROT 5.4 g/dl (6.4-8.2)
[2023-02-10 07:46] LABS: BLOOD UREA NITROGEN 57.6 mg/dL (7-18)
[2023-02-10] MEDS ORDERED: MAGNESIUM 2GM/50ML STERILE WATER IVPB IVPB ONE (08:00)
[2023-02-10] MEDS ORDERED: SODIUM PHOSPHATE - 20 MM in SODIUM CHLORIDE 250 ML IVPB ONE (08:29)
[2023-02-10] MEDS ORDERED: SODIUM PHOSPHATE - 30 MM in SODIUM CHLORIDE 250 ML IVPB ONE ×2 (08:45→09:00)
[2023-02-10] MEDS: ESCITALOPRAM OXALATE 10 MG TABLET PO SCH (09:05)
[2023-02-10] MEDS: PANTOPRAZOLE SODIUM 40 MG VIAL IVPUSH SCH ×2 (09:05→21:08)
[2023-02-10] MEDS: MUPIROCIN 2% TOPICAL OINTMENT FOR DECOLONIZATION NS SCH ×2 (09:05→21:11)
[2023-02-10] MEDS: SILVER SULFADIAZINE 1% TOP CREAM 50 GM JAR TP SCH (09:05)
[2023-02-10] MEDS: SODIUM ZIRCONIUM CYCLOSILICATE (LOKELMA) 5 GM PACKET PO SCH ×2 (09:06→21:06)
[2023-02-10] MEDS: VASOPRESSIN 40 UNITS/100 ML BAG IV SCH (13:59)
[2023-02-10] MEDS: SODIUM CHLORIDE 0.45% 1,000 ML IV SCH (16:30)
[2023-02-10] MEDS: NOREPINEPHRINE BITARTRATE/D5W 8 MG/250 ML BAG IVPB SCH (16:42)
[2023-02-10 18:53] LABS: HEMATOCRIT 24.5 % (32.4-45.2); MCH 29.4 pg (25.7-33.7); MCHC 32.8 g/dl (32.0-36.0); MEAN CELL VOLUME 89.5 fl (80-96); MEAN PLT VOLUME 7.2 fl (7.5-11.1); PLATELET COUNT 95 10^3/uL (134-434); RBC 2.73 M/mm3 (3.60-5.2); WHITE BLOOD COUNT 9.7 K/mm3 (4.0-10.0)
[2023-02-10] MEDS: CHLORHEXIDINE GLUCONATE 4% CLEANSER FOR DECOLONIZATION TP SCH (21:06)
[2023-02-11 07:17] LABS: BASO % 0.4 % (0-2.0); EOS % 2.6 % (0-4.5); HEMATOCRIT 21.9 % (32.4-45.2); HEMOGLOBIN 7.1 GM/dL (10.7-15.3); MCH 29.5 pg (25.7-33.7); MCHC 32.3 g/dl (32.0-36.0); MEAN CELL VOLUME 91.4 fl (80-96); MEAN PLT VOLUME 7.6 fl (7.5-11.1); PLATELET COUNT 76 10^3/uL (134-434); RDW 15.7 % (11.6-15.6); WHITE BLOOD COUNT 6.8 K/mm3 (4.0-10.0)
[2023-02-11 07:37] LABS: ALBUMIN 2.7 g/dl (3.4-5.0); BLOOD UREA NITROGEN 39.1 mg/dL (7-18); CALCIUM 7.9 mg/dL (8.5-10.1); MAGNESIUM 1.8 mg/dL (1.8-2.4)
[2023-02-11 07:41] LABS: PHOSPHOROUS 2.2 mg/dL (2.5-4.9)
[2023-02-11 07:42] LABS: TOT PROT 5.5 g/dl (6.4-8.2)
[2023-02-11 07:43] LABS: BILIRUBIN,TOTAL 0.8 mg/dL (0.2-1)
[2023-02-11] MEDS: SILVER SULFADIAZINE 1% TOP CREAM 50 GM JAR TP SCH (09:27)
[2023-02-11] MEDS: ESCITALOPRAM OXALATE 10 MG TABLET PO SCH (09:28)
[2023-02-11] MEDS: PANTOPRAZOLE SODIUM 40 MG VIAL IVPUSH SCH ×2 (09:28→21:08)
[2023-02-11] MEDS: MUPIROCIN 2% TOPICAL OINTMENT FOR DECOLONIZATION NS SCH (09:28)
[2023-02-11] MEDS: SODIUM ZIRCONIUM CYCLOSILICATE (LOKELMA) 5 GM PACKET PO SCH ×2 (09:29→21:09)
[2023-02-11] MEDS: VASOPRESSIN 40 UNITS/100 ML BAG IV SCH (12:59)
[2023-02-11 18:32] LABS: BASO % 0.2 % (0-2.0); EOS % 1.9 % (0-4.5); HEMATOCRIT 24.3 % (32.4-45.2); HEMOGLOBIN 8.1 GM/dL (10.7-15.3); LYMPH % 6.5 % (8-40); MCH 29.3 pg (25.7-33.7); MCHC 33.1 g/dl (32.0-36.0); MEAN CELL VOLUME 88.7 fl (80-96); MEAN PLT VOLUME 7.4 fl (7.5-11.1); MONO % 6.8 % (3.8-10.2); NEUT % 84.6 % (42.8-82.8); PLATELET COUNT 83 10^3/uL (134-434); RBC 2.74 M/mm3 (3.60-5.2); RDW 16.6 % (11.6-15.6); WHITE BLOOD COUNT 8.9 K/mm3 (4.0-10.0)
[2023-02-11] MEDS: NOREPINEPHRINE BITARTRATE/D5W 8 MG/250 ML BAG IVPB SCH (19:27)
[2023-02-11] MEDS: SODIUM CHLORIDE 0.45% 1,000 ML IV SCH (21:08)
[2023-02-11] MEDS: CHLORHEXIDINE GLUCONATE 4% CLEANSER FOR DECOLONIZATION TP SCH (21:09)
[2023-02-12] MEDS: VASOPRESSIN 40 UNITS/100 ML BAG IV SCH ×2 (02:00→17:37)
[2023-02-12] MEDS: SODIUM CHLORIDE 0.45% 1,000 ML IV SCH ×3 (03:26→21:40)
[2023-02-12] MEDS: NOREPINEPHRINE BITARTRATE/D5W 8 MG/250 ML BAG IVPB SCH ×2 (03:26→17:39)
[2023-02-12 07:41] LABS: POTASSIUM 4.7 mmol/L (3.5-5.1)
[2023-02-12 07:43] LABS: CALCIUM 7.9 mg/dL (8.5-10.1)
[2023-02-12 07:44] LABS: ALBUMIN 2.8 g/dl (3.4-5.0); BLOOD UREA NITROGEN 26.3 mg/dL (7-18); MAGNESIUM 1.6 mg/dL (1.8-2.4)
[2023-02-12 07:47] LABS: CREATININE 0.9 mg/dL (0.55-1.3); PHOSPHOROUS 1.9 mg/dL (2.5-4.9)
[2023-02-12 07:48] LABS: TOT PROT 5.4 g/dl (6.4-8.2)
[2023-02-12 07:56] LABS: BASO % 0.4 % (0-2.0); HEMATOCRIT 22.3 % (32.4-45.2); HEMOGLOBIN 7.5 GM/dL (10.7-15.3); LYMPH % 7.5 % (8-40); MCH 29.8 pg (25.7-33.7); MCHC 33.5 g/dl (32.0-36.0); MEAN CELL VOLUME 89.1 fl (80-96); MEAN PLT VOLUME 7.8 fl (7.5-11.1); MONO % 7.1 % (3.8-10.2); PLATELET COUNT 74 10^3/uL (134-434); RBC 2.51 M/mm3 (3.60-5.2); RDW 16.6 % (11.6-15.6); WHITE BLOOD COUNT 6.7 K/mm3 (4.0-10.0)
[2023-02-12] MEDS: SODIUM ZIRCONIUM CYCLOSILICATE (LOKELMA) 5 GM PACKET PO SCH (09:24)
[2023-02-12] MEDS: PANTOPRAZOLE SODIUM 40 MG VIAL IVPUSH SCH ×2 (09:24→21:11)
[2023-02-12] MEDS: SILVER SULFADIAZINE 1% TOP CREAM 50 GM JAR TP SCH (09:25)
[2023-02-12] MEDS: ESCITALOPRAM OXALATE 10 MG TABLET PO SCH (09:38)
[2023-02-12] MEDS ORDERED: MAGNESIUM 1GM/D5W - 1 GM/100 ML IVPB IVPB ONE (10:00)
[2023-02-12 17:39] LABS: HEMATOCRIT 21.3 % (32.4-45.2); MCH 29.3 pg (25.7-33.7); MCHC 32.5 g/dl (32.0-36.0); MEAN CELL VOLUME 90.2 fl (80-96); MEAN PLT VOLUME 7.3 fl (7.5-11.1); PLATELET COUNT 87 10^3/uL (134-434); RBC 2.36 M/mm3 (3.60-5.2); RDW 16.8 % (11.6-15.6); WHITE BLOOD COUNT 9.4 K/mm3 (4.0-10.0)
[2023-02-12 17:50] LABS: HEMOGLOBIN 6.9 GM/dL (10.7-15.3)
[2023-02-12 19:09] VITALS: BMI 44.4
[2023-02-12] MEDS: CHLORHEXIDINE GLUCONATE 4% CLEANSER FOR DECOLONIZATION TP SCH (21:11)
[2023-02-12] MEDS ORDERED: QUEtiapine FUMARATE 50 MG TABLET PO ONE (23:26)
[2023-02-13 07:26] LABS: HEMATOCRIT 22.2 % (32.4-45.2); HEMOGLOBIN 7.4 GM/dL (10.7-15.3); MCH 29.9 pg (25.7-33.7); MCHC 33.1 g/dl (32.0-36.0); MEAN CELL VOLUME 90.2 fl (80-96); MEAN PLT VOLUME 7.8 fl (7.5-11.1); PLATELET COUNT 64 10^3/uL (134-434); RBC 2.46 M/mm3 (3.60-5.2); WHITE BLOOD COUNT 5.6 K/mm3 (4.0-10.0)
[2023-02-13 07:34] LABS: INR 1.34 (0.83-1.09); PROTHROMBIN TIME (PATIENT) 15.5 SEC (9.7-13.0)
[2023-02-13 08:19] LABS: POTASSIUM 4.3 mmol/L (3.5-5.1)
[2023-02-13 08:25] LABS: ALBUMIN 2.5 g/dl (3.4-5.0)
[2023-02-13 08:27] LABS: BILIRUBIN,DIRECT 0.4 mg/dL (0.0-0.2); CALCIUM 7.7 mg/dL (8.5-10.1); MAGNESIUM 1.6 mg/dL (1.8-2.4); PHOSPHOROUS 1.9 mg/dL (2.5-4.9)
[2023-02-13 08:29] LABS: BILIRUBIN,TOTAL 1.2 mg/dL (0.2-1); CREATININE 0.9 mg/dL (0.55-1.3); TOT PROT 5.1 g/dl (6.4-8.2)
[2023-02-13] MEDS ORDERED: MAGNESIUM 2GM/50ML STERILE WATER IVPB IVPB ONE (08:40)
[2023-02-13] MEDS ORDERED: SODIUM PHOSPHATE - 30 MM in SODIUM CHLORIDE 250 ML IVPB ONE (08:42)
[2023-02-13] MEDS: ESCITALOPRAM OXALATE 10 MG TABLET PO SCH (10:27)
[2023-02-13] MEDS: PANTOPRAZOLE SODIUM 40 MG VIAL IVPUSH SCH ×2 (10:28→21:23)
[2023-02-13] MEDS: MULTIVITAMINS (DAILY MVI) TABLET (FP) PO SCH (10:28)
[2023-02-13] MEDS: SILVER SULFADIAZINE 1% TOP CREAM 50 GM JAR TP SCH (10:30)
[2023-02-13] MEDS ORDERED: ACETAMINOPHEN 1000 MG/100 ML BAG IVPB ONE ×2 (17:53→17:54)
[2023-02-13] MEDS: VASOPRESSIN 40 UNITS/100 ML BAG IV SCH ×2 (18:24→18:26)
[2023-02-13] MEDS: NOREPINEPHRINE BITARTRATE/D5W 8 MG/250 ML BAG IVPB SCH (18:25)
[2023-02-13 18:47] LABS: BASO % 0.3 % (0-2.0); EOS % 1.9 % (0-4.5); HEMATOCRIT 21.2 % (32.4-45.2); LYMPH % 8.6 % (8-40); MCH 29.4 pg (25.7-33.7); MCHC 32.1 g/dl (32.0-36.0); MEAN CELL VOLUME 91.6 fl (80-96); MEAN PLT VOLUME 8.2 fl (7.5-11.1); MONO % 9.5 % (3.8-10.2); NEUT % 79.7 % (42.8-82.8); PLATELET COUNT 115 10^3/uL (134-434); RBC 2.31 M/mm3 (3.60-5.2); RDW 16.9 % (11.6-15.6); WHITE BLOOD COUNT 11.5 K/mm3 (4.0-10.0)
[2023-02-13 18:48] LABS: HEMOGLOBIN 6.8 GM/dL (10.7-15.3)
[2023-02-13] MEDS: CHLORHEXIDINE GLUCONATE 4% CLEANSER FOR DECOLONIZATION TP SCH (21:24)
[2023-02-13 23:22] LABS: BASO % 0.4 % (0-2.0); EOS % 1.5 % (0-4.5); HEMATOCRIT 24.6 % (32.4-45.2); LYMPH % 4.3 % (8-40); MCHC 32.5 g/dl (32.0-36.0); MEAN CELL VOLUME 89.3 fl (80-96); MONO % 7.6 % (3.8-10.2); NEUT % 86.2 % (42.8-82.8); PLATELET COUNT 136 10^3/uL (134-434); RBC 2.75 M/mm3 (3.60-5.2); RDW 16.3 % (11.6-15.6)
[2023-02-14 00:02] LABS: ANISOCYTOSIS 2+; MACROCYTOSIS 0; OVALOCYTE 1+; TARGET CELLS 1+; TEAR DROP CELLS 1+
[2023-02-14 07:40] LABS: BASO % 0.6 % (0-2.0); EOS % 2.3 % (0-4.5); HEMATOCRIT 22.5 % (32.4-45.2); HEMOGLOBIN 7.3 GM/dL (10.7-15.3); LYMPH % 6.9 % (8-40); MCH 29.5 pg (25.7-33.7); MCHC 32.4 g/dl (32.0-36.0); MEAN CELL VOLUME 90.9 fl (80-96); MEAN PLT VOLUME 8.6 fl (7.5-11.1); NEUT % 81.2 % (42.8-82.8); PLATELET COUNT 99 10^3/uL (134-434); RBC 2.47 M/mm3 (3.60-5.2); WHITE BLOOD COUNT 10.8 K/mm3 (4.0-10.0)
[2023-02-14 08:03] LABS: POTASSIUM 4.5 mmol/L (3.5-5.1)
[2023-02-14 08:08] LABS: ALBUMIN 2.3 g/dl (3.4-5.0); CALCIUM 7.2 mg/dL (8.5-10.1); MAGNESIUM 1.8 mg/dL (1.8-2.4)
[2023-02-14 08:10] LABS: PHOSPHOROUS 3.1 mg/dL (2.5-4.9)
[2023-02-14 08:12] LABS: BILIRUBIN,TOTAL 0.9 mg/dL (0.2-1); CREATININE 0.9 mg/dL (0.55-1.3); TOT PROT 4.7 g/dl (6.4-8.2)
[2023-02-14] MEDS: ESCITALOPRAM OXALATE 10 MG TABLET PO SCH (09:20)
[2023-02-14] MEDS: PANTOPRAZOLE SODIUM 40 MG VIAL IVPUSH SCH ×2 (09:21→21:02)
[2023-02-14] MEDS: MULTIVITAMINS (DAILY MVI) TABLET (FP) PO SCH (09:21)
[2023-02-14] MEDS: SILVER SULFADIAZINE 1% TOP CREAM 50 GM JAR TP SCH (09:21)
[2023-02-14] MEDS: SODIUM CHLORIDE 1,000 ML IV SCH ×2 (10:00→22:35)
[2023-02-14] MEDS: VASOPRESSIN 40 UNITS/100 ML BAG IV SCH ×2 (14:45→21:02)
[2023-02-14] MEDS: NOREPINEPHRINE BITARTRATE/D5W 8 MG/250 ML BAG IVPB SCH (17:21)
[2023-02-14 19:32] LABS: BASO % 0.1 % (0-2.0); EOS % 1.7 % (0-4.5); HEMATOCRIT 23.6 % (32.4-45.2); HEMOGLOBIN 7.8 GM/dL (10.7-15.3); LYMPH % 5.5 % (8-40); MCH 29.9 pg (25.7-33.7); MCHC 33.2 g/dl (32.0-36.0); MONO % 6.8 % (3.8-10.2); NEUT % 85.9 % (42.8-82.8); PLATELET COUNT 76 10^3/uL (134-434); RBC 2.62 M/mm3 (3.60-5.2); RDW 16.7 % (11.6-15.6); WHITE BLOOD COUNT 10.4 K/mm3 (4.0-10.0)
[2023-02-14] MEDS: CHLORHEXIDINE GLUCONATE 4% CLEANSER FOR DECOLONIZATION TP SCH (21:02)
[2023-02-15] MEDS: SODIUM CHLORIDE 1,000 ML IV SCH (06:12)
[2023-02-15 07:15] LABS: BASO % 0.4 % (0-2.0); EOS % 1.5 % (0-4.5); HEMATOCRIT 22.9 % (32.4-45.2); HEMOGLOBIN 7.5 GM/dL (10.7-15.3); LYMPH % 5.4 % (8-40); MCH 29.7 pg (25.7-33.7); MCHC 32.7 g/dl (32.0-36.0); MEAN PLT VOLUME 8.8 fl (7.5-11.1); MONO % 8.9 % (3.8-10.2); NEUT % 83.8 % (42.8-82.8); PLATELET COUNT 76 10^3/uL (134-434); RBC 2.51 M/mm3 (3.60-5.2); RDW 17.1 % (11.6-15.6); WHITE BLOOD COUNT 8.8 K/mm3 (4.0-10.0)
[2023-02-15 07:36] LABS: POTASSIUM 4.4 mmol/L (3.5-5.1)
[2023-02-15 07:40] LABS: ALBUMIN 2.3 g/dl (3.4-5.0); BLOOD UREA NITROGEN 15.7 mg/dL (7-18); CALCIUM 7.3 mg/dL (8.5-10.1); MAGNESIUM 1.7 mg/dL (1.8-2.4)
[2023-02-15 07:42] LABS: PHOSPHOROUS 2.6 mg/dL (2.5-4.9)
[2023-02-15 07:43] LABS: CREATININE 0.8 mg/dL (0.55-1.3)
[2023-02-15 07:44] LABS: BILIRUBIN,TOTAL 1.2 mg/dL (0.2-1); TOT PROT 4.7 g/dl (6.4-8.2)
[2023-02-15] MEDS: MULTIVITAMINS (DAILY MVI) TABLET (FP) PO SCH (09:38)
[2023-02-15] MEDS: SILVER SULFADIAZINE 1% TOP CREAM 50 GM JAR TP SCH (09:38)
[2023-02-15] MEDS: ESCITALOPRAM OXALATE 10 MG TABLET PO SCH (09:38)
[2023-02-15] MEDS: PANTOPRAZOLE SODIUM 40 MG VIAL IVPUSH SCH ×2 (09:38→21:55)
[2023-02-15] MEDS: NOREPINEPHRINE BITARTRATE/D5W 8 MG/250 ML BAG IVPB SCH (18:46)
[2023-02-15] MEDS: CHLORHEXIDINE GLUCONATE 4% CLEANSER FOR DECOLONIZATION TP SCH (21:53)
[2023-02-16] MEDS: SODIUM CHLORIDE 1,000 ML IV SCH ×3 (03:00→18:44)
[2023-02-16] MEDS ORDERED: ACETAMINOPHEN 325 MG TABLET (FP) PO PRN (07:42)
[2023-02-16] MEDS: ESCITALOPRAM OXALATE 10 MG TABLET PO SCH (09:12)
[2023-02-16] MEDS: PANTOPRAZOLE SODIUM 40 MG VIAL IVPUSH SCH (09:12)
[2023-02-16] MEDS: MULTIVITAMINS (DAILY MVI) TABLET (FP) PO SCH (09:12)
[2023-02-16] MEDS: SILVER SULFADIAZINE 1% TOP CREAM 50 GM JAR TP SCH (09:14)
[2023-02-16] MEDS: MIDODRINE HCL 5 MG TABLET PO SCH ×3 (11:32→17:12)
[2023-02-16] MEDS: VASOPRESSIN 40 UNITS/100 ML BAG IV SCH (18:45)
[2023-02-16] MEDS: CHLORHEXIDINE GLUCONATE 4% CLEANSER FOR DECOLONIZATION TP SCH (21:19)
[2023-02-16] MEDS: PANTOPRAZOLE 40 MG TABLET PO SCH (21:20)
[2023-02-17] MEDS: ESCITALOPRAM OXALATE 10 MG TABLET PO SCH (09:57)
[2023-02-17] MEDS: MULTIVITAMINS (DAILY MVI) TABLET (FP) PO SCH (09:57)
[2023-02-17] MEDS: MIDODRINE HCL 5 MG TABLET PO SCH ×3 (09:57→17:17)
[2023-02-17] MEDS: SILVER SULFADIAZINE 1% TOP CREAM 50 GM JAR TP SCH (09:57)
[2023-02-17] MEDS: PANTOPRAZOLE 40 MG TABLET PO SCH ×2 (09:57→23:06)
[2023-02-17] MEDS ORDERED: METOPROLOL TARTRATE 25 MG TABLET (FP) PO SCH (11:00)
[2023-02-17] MEDS ORDERED: DIGOXIN 0.5 MG/2 ML AMPUL IVPUSH SCH (12:00)
[2023-02-17] MEDS ORDERED: CHLORHEXIDINE GLUCONATE 4% CLEANSER FOR DECOLONIZATION TP SCH (22:00)
[2023-02-18] MEDS: MIDODRINE HCL 5 MG TABLET PO SCH ×3 (09:50→17:17)
[2023-02-18] MEDS: PANTOPRAZOLE 40 MG TABLET PO SCH ×2 (09:50→21:56)
[2023-02-18] MEDS ORDERED: MAGNESIUM SULF 50% (8.12 MEQ/2 ML-1 GM VIAL) IVPB ONE (12:59)
[2023-02-18] MEDS: SILVER SULFADIAZINE 1% TOP CREAM 50 GM JAR TP SCH (17:01)
[2023-02-19] MEDS: PANTOPRAZOLE 40 MG TABLET PO SCH ×2 (10:16→21:24)
[2023-02-19] MEDS: MIDODRINE HCL 5 MG TABLET PO SCH ×3 (10:16→17:19)
[2023-02-19] MEDS: SILVER SULFADIAZINE 1% TOP CREAM 50 GM JAR TP SCH (12:02)
[2023-02-19] MEDS: SIMETHICONE 80 MG TAB.CHEW (FP) PO PRN (17:56)
[2023-02-20] MEDS: MIDODRINE HCL 5 MG TABLET PO SCH ×3 (10:34→17:33)
[2023-02-20] MEDS: PANTOPRAZOLE 40 MG TABLET PO SCH ×2 (10:34→22:36)
[2023-02-20] MEDS: SILVER SULFADIAZINE 1% TOP CREAM 50 GM JAR TP SCH (10:36)
[2023-02-21] MEDS: MIDODRINE HCL 5 MG TABLET PO SCH ×3 (09:56→17:28)
[2023-02-21] MEDS: PANTOPRAZOLE 40 MG TABLET PO SCH ×2 (09:56→22:10)
[2023-02-21] MEDS: SILVER SULFADIAZINE 1% TOP CREAM 50 GM JAR TP SCH (11:23)
[2023-02-21 13:17] LABS: LACTIC ACID 2.1 mmol/L (0.4-2.0)
[2023-02-22] MEDS: SILVER SULFADIAZINE 1% TOP CREAM 50 GM JAR TP SCH (10:25)
[2023-02-22] MEDS: MIDODRINE HCL 5 MG TABLET PO SCH ×3 (10:25→18:47)
[2023-02-22] MEDS: PANTOPRAZOLE 40 MG TABLET PO SCH ×2 (10:25→22:04)
[2023-02-22] MEDS: SIMETHICONE 80 MG TAB.CHEW (FP) PO PRN (12:18)
[2023-02-23] MEDS: SILVER SULFADIAZINE 1% TOP CREAM 50 GM JAR TP SCH (10:35)
[2023-02-23] MEDS: PANTOPRAZOLE 40 MG TABLET PO SCH (10:35)
[2023-02-23] MEDS: MIDODRINE HCL 5 MG TABLET PO SCH ×2 (10:35→14:24)
[2023-02-23 15:08] VITALS: BP 101/64; PULSE 117; RESP 18; TEMP 98
[2023-02-23] MEDS: SIMETHICONE 80 MG TAB.CHEW (FP) PO PRN (16:18)
== END 2023-02-23 18:14 | DRG 682 ==
LOC: JER 09:20 → JERBED 13:23 → JICU 18:30 → J6S 02-17 21:38
PROVIDERS: ADMIT Internal Medicine; ATTEND Internal Medicine
PROC: 30233N1 Transfusion of Nonautologous Red Blood Cells into Peripheral Vein, Percutaneous Approach (ICD-10-PCS; 2023-02-08)
PROC: 05HN33Z Insertion of Infusion Device into Left Internal Jugular Vein, Percutaneous Approach (ICD-10-PCS; 2023-02-10)
PROC: B544ZZA Ultrasonography of Left Jugular Veins, Guidance (ICD-10-PCS; 2023-02-10)
PROC: 05HM33Z Insertion of Infusion Device into Right Internal Jugular Vein, Percutaneous Approach (ICD-10-PCS; principal; 2023-02-12)
DX: N17.9 Acute kidney failure, unspecified (principal); G93.41 Metabolic encephalopathy; R57.1 Hypovolemic shock; R57.8 Other shock; E87.20 Acidosis, unspecified; Z68.42 Body mass index [BMI] 45.0-49.9, adult; K92.2 Gastrointestinal hemorrhage, unspecified; D62 Acute posthemorrhagic anemia; I48.91 Unspecified atrial fibrillation; I10 Essential (primary) hypertension; G62.9 Polyneuropathy, unspecified; D32.9 Benign neoplasm of meninges, unspecified; M79.7 Fibromyalgia; E05.90 Thyrotoxicosis, unspecified without thyrotoxic crisis or storm; E66.01 Morbid (severe) obesity due to excess calories; L43.8 Other lichen planus; E87.5 Hyperkalemia; I95.9 Hypotension, unspecified; K74.60 Unspecified cirrhosis of liver; F41.8 Other specified anxiety disorders; D69.6 Thrombocytopenia, unspecified; Z86.718 Personal history of other venous thrombosis and embolism; Z79.01 Long term (current) use of anticoagulants; K76.9 Liver disease, unspecified
CPT/HCPCS: 0241U-QW; 36415; 36430; 36600; 70450-TC; 71045-TC-FY; 76775-TC; 80048; 80053; 80076; 81003; 82010; 82140; 82272; 82533; 82550; 82553; 82570; 82803; 83605; 83735; 84100; 84132; 84300; 84443; 84484; 85025; 85027; 85610; 85730; 86850; 86900; 86901; 86922; 87040; 87070; 87086; 87205; 93005; 93010; 93306-TC; 93970-TC; 97162-GP; 99285-25; J3490; P9058

== ENCOUNTER 2023-02-25 03:20 | Emergency (ER) | payer OTHER ==
[2023-02-25 04:23] VITALS: TEMP 97.5; BMI 44.4
[2023-02-25 04:44] LABS: BASO % 0.5 % (0-2.0); EOS % 1.9 % (0-4.5); HEMATOCRIT 16.2 % (32.4-45.2); LYMPH % 13.3 % (8-40); MCH 28.3 pg (25.7-33.7); MEAN CELL VOLUME 94.2 fl (80-96); MEAN PLT VOLUME 7.6 fl (7.5-11.1); NEUT % 74.3 % (42.8-82.8); PLATELET COUNT 224 10^3/uL (134-434); RBC 1.73 M/mm3 (3.60-5.2); RDW 19.9 % (11.6-15.6); WHITE BLOOD COUNT 13.1 K/mm3 (4.0-10.0)
[2023-02-25 04:46] LABS: INR 1.41 (0.83-1.09); POTASSIUM 4.7 mmol/L (3.5-5.1); PROTHROMBIN TIME (PATIENT) 16.3 SEC (9.7-13.0)
[2023-02-25 04:48] LABS: ALBUMIN 2.1 g/dl (3.4-5.0); CALCIUM 7.4 mg/dL (8.5-10.1)
[2023-02-25 04:49] LABS: ACTIVATED PTT 31.9 SECONDS (25.2-36.5)
[2023-02-25 04:52] LABS: CREATININE 1.4 mg/dL (0.55-1.3)
[2023-02-25 04:53] LABS: BILIRUBIN,TOTAL 0.6 mg/dL (0.2-1); HEMOGLOBIN 4.9 GM/dL (10.7-15.3)
[2023-02-25 04:56] LABS: N-TERMINAL BNP 7840.3 pg/ml (5-450)
[2023-02-25 06:57] VITALS: BP 74/37; PULSE 83; RESP 19
[2023-02-25 10:07] LABS: ANISOCYTOSIS 2+; MACROCYTOSIS 0
== END 2023-02-25 08:57 ==
LOC: JER 03:20
DX: D64.9 Anemia, unspecified (principal); N17.9 Acute kidney failure, unspecified; K74.60 Unspecified cirrhosis of liver; I48.91 Unspecified atrial fibrillation; I10 Essential (primary) hypertension; Z20.822 Contact with and (suspected) exposure to COVID-19
CPT/HCPCS: 0241U-QW; 36415; 71045-TC-FY; 80053; 82550; 83880; 84484; 85025; 85610; 85730; 86850; 86900; 86901; 93005; 93010